=== PATIENT | male | born 1955 | race Caucasian/White ===

== ENCOUNTER 2018-01-01 19:54 | Emergency (ER) | payer OTHER, SELFPAY ==
[2018-01-01 20:15] VITALS: BP 183/109; PULSE 88; RESP 14; TEMP 36.3; O2SAT 98
--- NOTE | 2018-01-01 20:22 | ED.ALLEREA ---
HPI - Allergic Reaction <KATIANA Knowles - Last Filed: 01/01/18 23:14> General Chief complaint: Allergic Reaction Stated complaint: YELLOW JACKET STUNG TONGUE Time Seen by Provider: 01/01/18 20:22 Source: patient and family Mode of arrival: ambulatory Limitations: no limitations History of Present Illness HPI narrative: 62-year-old male here for complaint of swelling to his tongue after be done by yellow jacket to his tongue earlier this evening. He reports swelling to the tongue and some slight discomfort however it is limited just to the tongue not to the throat. He denies any shortness of breath. He denies having any prior history of having a anaphylactic allergic response to venom. He is ambulatory in the emergency room. No other concerns or complaints at this time. MD complaint: other (Tongue swelling) Related Data Home Medications Medication Instructions Recorded Confirmed methylcellulose (laxative) 500 mg PO DAILY #0 08/11/17 [Citrucel] Previous Rx's Medication Instructions Recorded cetirizine 10 mg PO DAILY #5 cap 01/01/18 prednisone 40 mg PO DAILY #8 tab 01/01/18 Allergies Allergy/AdvReac Type Severity Reaction Status Date / Time walnut [WALNUT] Allergy Severe Anaphylaxis Verified 01/01/18 20:17 tadalafil [From CIALIS] Allergy Intermediate Anxiety Verified 01/01/18 20:17 Review of Systems <KATIANA Knowles - Last Filed: 01/01/18 23:14> Constitutional Denies chills, Denies fever(s), Denies lethargy and Denies weakness Eyes Denies change in vision, Denies eye discharge, Denies irritation and Denies loss of vision ENT Comments: Swelling of the tongue after wasp sting Cardiovascular Denies chest pain, Denies irregular heart rhythm, Denies lightheadedness, Denies palpitations, Denies dyspnea, Denies dyspnea on exertion and Denies orthopnea Respiratory Denies cough, Denies dyspnea, Denies dyspnea on exertion and Denies wheezing Gastrointestinal Gastrointestinal: Denies abdominal pain, Denies change in bowel habits, Denies diarrhea, Denies nausea and Denies vomiting Genitourinary Denies hematuria, Denies flank pain, Denies urinary incontinence and Denies urinary urgency Musculoskeletal Denies back pain, Denies muscle weakness, Denies numbness and Denies tingling Integumentary/Breasts Denies pruritus, Denies erythema, Denies rash and Denies wounds Neurologic Denies confusion, Denies loss of vision, Denies numbness, Denies tingling and Denies weakness Psychiatric Denies anxiety, Denies confusion, Denies depression, Denies homicidal ideation and Denies suicidal ideation Endocrine Denies palpitations Allergic/Immunologic Denies wheezing Exam <KATIANA Knowles - Last Filed: 01/01/18 23:14> Initial Vital Signs Initial Vital Signs: Vital Signs Temperature 97.4 F L 01/01/18 20:15 Pulse Rate 88 01/01/18 20:15 Respiratory Rate 14 01/01/18 20:15 Blood Pressure 183/109 H 01/01/18 20:15 Pulse Oximetry 98 01/01/18 20:15 Const General: cooperative and well developed Nutritional Appearance: well nourished Orientation: alert, awake, oriented x3 and not confused HENMT Head: normocephalic and atraumatic Nose: external nose normal and No nasal discharge Face and sinus: sinus tenderness Mouth: oral mucosae normal, oropharynx normal, moist mucous membranes and other (Tongue is swollen.) Teeth and gingiva: dentition normal Throat: tonsils normal and uvula midline Eyes Conjunctivae: conjunctivae normal Sclera: sclerae normal Pupils: PERRL EOM: EOM intact bilaterally Neck Neck: normal visual inspection, trachea midline, No lymphadenopathy, No midline deformity and No JVD Lymphatic: No lymphedema Chest Chest: normal inspection of the chest Resp Effort & Inspection: normal respiratory effort, able to speak in complete sentences, no respiratory distress and no use of accessory muscles Auscultation: clear to auscultation bilaterally, no rales, no rhonchi and no wheezes Cardio Rate: regular rate Rhythm: regular rhythm Heart Sounds: no click, no gallops, no murmurs and no rubs Skin General: no rashes or lesions noted, No jaundice and No petechiae Neuro General: alert, oriented x3, gait normal and no focal motor deficits Speech: speech normal <Goldy Courtney MD - Last Filed: 01/02/18 05:24> Initial Vital Signs Initial Vital Signs: Vital Signs Temperature 97.4 F L 01/01/18 20:15 Pulse Rate 88 01/01/18 20:15 Respiratory Rate 14 01/01/18 20:15 Blood Pressure 183/109 H 01/01/18 20:15 Pulse Oximetry 98 01/01/18 20:15 Course <KATIANA Knowles - Last Filed: 01/01/18 23:14> Orders Ordered: Discontinued Medications Diphenhydramine HCl (Benadryl) 50 mg IV NOW ONE Stop: 01/01/18 20:23 Last Admin: 01/01/18 20:29 Dose: 50 mg Famotidine (Pepcid) 20 mg in 50 mls @ 200 mls/hr IV NOW ONE Stop: 01/01/18 20:36 Last Infusion: 01/01/18 20:45 Dose: 0 mls/hr Admin: 01/01/18 20:29 Dose: 200 mls/hr Methylprednisolone (Solu-Medrol 125 Mg Vial) 125 mg IV NOW ONE Stop: 01/01/18 20:23 Last Admin: 01/01/18 20:29 Dose: 125 mg Vital Signs - 8 hr 01/01/18 22:16 Temperature 98.1 F Pulse Rate 78 Respiratory Rate 16 Blood Pressure 156/99 H Pulse Oximetry 100 <Goldy Courtney MD - Last Filed: 01/02/18 05:24> Orders Ordered: Discontinued Medications Diphenhydramine HCl (Benadryl) 50 mg IV NOW ONE Stop: 01/01/18 20:23 Last Admin: 01/01/18 20:29 Dose: 50 mg Famotidine (Pepcid) 20 mg in 50 mls @ 200 mls/hr IV NOW ONE Stop: 01/01/18 20:36 Last Infusion: 01/01/18 20:45 Dose: 0 mls/hr Admin: 01/01/18 20:29 Dose: 200 mls/hr Methylprednisolone (Solu-Medrol 125 Mg Vial) 125 mg IV NOW ONE Stop: 01/01/18 20:23 Last Admin: 01/01/18 20:29 Dose: 125 mg Vital Signs - 8 hr 01/01/18 22:16 Temperature 98.1 F Pulse Rate 78 Respiratory Rate 16 Blood Pressure 156/99 H Pulse Oximetry 100 MDM - Allergic Reaction <KATIANA Knowles - Last Filed: 01/01/18 23:14> MDM Narrative Medical decision making narrative: He was given Benadryl, Solu-Medrol and Pepcid IV here in the emergency room. He was observed for a couple of hours and did not have any changes in his symptoms. He still had some swelling to his tongue however did not progress to any other symptoms. He is not in kidney acute distress. He states that he does not feel any shortness of breath. He is prescribed a short course of prednisone for anti-inflammatory effects along with Zyrtec for antihistamine. May use Benadryl at night follow up with primary care provider the next few days for re-evaluation. For any worsening symptoms return emergency room. Discharge Plan Departure Patient Disposition: Home, Self-Care Clinical Impression: Tongue swelling, Accidental insect sting Discharge Date/Time: 01/01/18 22:16 Interventions: ED Discharge Assessment Last Done: 01/01/18 22:16 Instructions: DI for Insect Bites and Stings Activity Restrictions/Additional Instructions: Urine given medication in the emergency room to help control swelling of the tongue and prevent any further swelling to your neck and airway. After observation for couple hours it seems that you're airway and time were stable. You are prescribed Short course of prednisone steroid to help with inflammation. Also Zyrtec and antihistamine use as directed. Follow up with primary care for the next few days for re-evaluation. For any worsening symptoms return emergency room. Prescriptions: New prednisone 20 mg tablet 40 mg PO DAILY Qty: 8 RF: 0 cetirizine 10 mg capsule 10 mg PO DAILY Qty: 5 RF: 0 No Action methylcellulose (laxative) [Citrucel] 500 MG tablet 500 mg PO DAILY Qty: 0 RF: 0 Referrals: [facility] [Provider Group] <Goldy Courtney MD - Last Filed: 01/02/18 05:24> Cosign ED Attending Denaature Attestation: I was available in the ER for verbal consultation and to see the patient directly if needed. I agree with the evaluation and discharge plan for this patient.
[2018-01-01] MEDS: methylPREDNISolone 125 MG/2 ML VIAL IV (20:29)
[2018-01-01] MEDS: diphenhydrAMINE 50 MG/ML VIAL IV (20:29)
[2018-01-01] MEDS: FAMOTIDINE 20 MG/50 ML PIGGYBACK 200 MG IV (20:29)
[2018-01-01 22:16] VITALS: BP 156/99; PULSE 78; RESP 16; TEMP 36.7; O2SAT 100
== END 2018-01-01 22:16 | disposition home or self-care (01) ==
PROVIDERS: Emergency Provider Nurse Practitioner Family
DX: S09.93XA Unspecified injury of face, initial encounter (principal); T63.461A Toxic effect of venom of wasps, accidental (unintentional), initial encounter; R22.0 Localized swelling, mass and lump, head
CPT/HCPCS: 36591; 96374; 96375; 99283; 99284; J1200; J2930

== ENCOUNTER 2018-02-17 11:29 | Emergency (ER) | payer OTHER, SELFPAY ==
[2018-02-17 11:35] VITALS: BP 186/106; PULSE 84; RESP 20; TEMP 36.8; O2SAT 100
--- NOTE | 2018-02-17 13:56 | ED.NEUROSD ---
HPI - Neuro Symptoms/Deficit <KATIANA Knowles - Last Filed: 02/17/18 21:41> General Chief Complaint: Neuro Symptoms/Deficit Stated Complaint: feels really tired Time Seen by Provider: 02/17/18 13:54 Source: patient Mode of arrival: ambulatory Limitations: no limitations History of Present Illness HPI Narrative: 62-year-old male with history of hypertension and a nonsmoker states he is here for feeling tired over the last 3 days. He denies any fevers or chills. Denies any chest pain. No shortness of breath. Positive p.o. intake. No nausea vomiting. Last bowel movement was earlier today and was unremarkable. No urinary symptoms. He states that he is concerned about bradycardia or AFib because last time he had symptoms like this that he had those complications at that time. He denies feeling any palpitations at this time Related Data Home Medications Medication Instructions Recorded Confirmed methylcellulose (laxative) 500 mg PO DAILY #0 08/11/17 02/17/18 [Citrucel] Cbd Cream 2:1 1 applic TOPICAL PRN PRN 02/17/18 02/17/18 aspirin 81 mg PO QPM 02/17/18 02/17/18 benazepril 40 mg PO QPM 02/17/18 02/17/18 hyoscyamine sulfate 1 tab PO BID 02/17/18 02/17/18 pantoprazole 40 mg PO BID 02/17/18 02/17/18 sildenafil (antihypertensive) 1 dose PO PRN PRN 02/17/18 02/17/18 venlafaxine [Effexor XR] 75 mg PO BEDTIME 02/17/18 02/17/18 zolpidem 10 mg PO BEDTIME PRN 02/17/18 02/17/18 Allergies Allergy/AdvReac Type Severity Reaction Status Date / Time walnut [WALNUT] Allergy Severe Anaphylaxis Verified 01/01/18 20:17 tadalafil [From CIALIS] Allergy Intermediate Anxiety Verified 01/01/18 20:17 Review of Systems <KATIANA Knowles - Last Filed: 02/17/18 21:41> Constitutional Denies chills, Reports fatigue, Denies fever(s), Denies lethargy and Denies weakness ENT Ears, Nose, Mouth, and Throat: Denies change in voice, Denies neck pain and Denies sore throat Cardiovascular Denies chest pain, Denies irregular heart rhythm, Denies lightheadedness, Denies palpitations, Denies dyspnea, Denies dyspnea on exertion and Denies orthopnea Respiratory Denies cough, Denies dyspnea, Denies dyspnea on exertion and Denies wheezing Gastrointestinal Gastrointestinal: Denies abdominal pain, Denies change in bowel habits, Denies diarrhea, Denies nausea and Denies vomiting Genitourinary Denies hematuria, Denies flank pain, Denies urinary incontinence and Denies urinary urgency Musculoskeletal Denies neck pain Integumentary/Breasts Denies pruritus, Denies erythema, Denies rash and Denies wounds Neurologic Denies weakness Endocrine Reports fatigue and Denies palpitations Allergic/Immunologic Denies wheezing Exam <KATIANA Knowles - Last Filed: 02/17/18 21:41> Initial Vital Signs Initial Vital Signs: Vital Signs Temperature 98.2 F 02/17/18 11:35 Pulse Rate 84 02/17/18 11:35 Respiratory Rate 20 02/17/18 11:35 Blood Pressure 186/106 H 02/17/18 11:35 Pulse Oximetry 100 02/17/18 11:35 Const General: cooperative and well developed Nutritional Appearance: well nourished Orientation: alert, awake, oriented x3 and not confused HENAR Mouth: oral mucosae normal and moist mucous membranes Eyes Conjunctivae: conjunctivae normal Sclera: sclerae normal Pupils: PERRL EOM: EOM intact bilaterally Resp Effort & Inspection: normal respiratory effort, able to speak in complete sentences, no respiratory distress and no use of accessory muscles Auscultation: clear to auscultation bilaterally, no rales, no rhonchi and no wheezes Cardio Rate: regular rate Rhythm: regular rhythm Heart Sounds: no click, no gallops, no murmurs and no rubs Pulses: normal peripheral pulses GI Inspection: non-distended Palpation: soft, no hepatosplenomegaly, No guarding, No pulsatile mass and No tender Auscultation: normal bowel sounds Skin General: no rashes or lesions noted, No jaundice and No petechiae Neuro General: alert, oriented x3, gait normal and no focal motor deficits Speech: speech normal <Karli Marrero DO - Last Filed: 02/20/18 08:07> Initial Vital Signs Initial Vital Signs: Vital Signs Temperature 98.2 F 02/17/18 11:35 Pulse Rate 84 02/17/18 11:35 Respiratory Rate 20 02/17/18 11:35 Blood Pressure 186/106 H 02/17/18 11:35 Pulse Oximetry 100 02/17/18 11:35 Course <KATIANA Knowles - Last Filed: 02/17/18 21:41> Orders Ordered: Discontinued Medications Diphtheria/Tetanus/Acell Pertussis (Adacel) 0.5 ml IM .ONCE ONE Stop: 02/20/18 07:56 Sodium Chloride (Normal Saline 0.9%) 1,000 mls @ 150 mls/hr IV CONT TARUN Last Admin: 02/17/18 17:40 Dose: Not Given Vital Signs - 8 hr 02/17/18 11:35 02/17/18 16:52 Temperature 98.2 F Pulse Rate 84 91 H Respiratory Rate 20 20 Blood Pressure 186/106 H Blood Pressure [Left Arm] 143/105 H Pulse Oximetry 100 93 <Karli Marrero DO - Last Filed: 02/20/18 08:07> Orders Ordered: Discontinued Medications Diphtheria/Tetanus/Acell Pertussis (Adacel) 0.5 ml IM .ONCE ONE Stop: 02/20/18 07:56 Sodium Chloride (Normal Saline 0.9%) 1,000 mls @ 150 mls/hr IV CONT TARUN Last Admin: 02/17/18 17:40 Dose: Not Given Vital Signs - 8 hr 02/17/18 11:35 02/17/18 16:52 Temperature 98.2 F Pulse Rate 84 91 H Respiratory Rate 20 20 Blood Pressure 186/106 H Blood Pressure [Left Arm] 143/105 H Pulse Oximetry 100 93 MDM - Neuro Symptoms/Deficit <KATIANA Knowles - Last Filed: 02/17/18 21:41> Lab Data Result diagrams: 02/17/18 15:45 02/17/18 15:45 Lab Results 02/17/18 02/17/18 Range/Units 15:45 15:45 WBC 7.1 (4.5-11.0) X10^3/uL RBC 4.33 L (4.5-5.9) X10^6/uL Hgb 14.3 (13.5-17.5) g/dL Hct 41.2 (41-53) % MCV 95.1 (80-100) fL MCH 33.1 (26-34) PG MCHC 34.8 (30-36) % RDW 13.1 (11.6-14.8) % Plt Count 271 (150-400) X10^3/uL Neut % (Auto) 61.9 (50-75) % Lymph % (Auto) 22.0 L (25-40) % Mingo % (Auto) 12.2 (3-14) % Eos % (Auto) 2.8 (2-4) % Baso % (Auto) 1.1 (0-2) % Neut # (Auto) 4400 (5450-5064) /uL Sodium 143 (137-145) mmol/L Potassium 3.7 (3.4-5.1) mmol/L Chloride 104 (98-107) mmol/L Carbon Dioxide 26 (22-32) mmol/L BUN 12 (9-20) mg/dL Creatinine 0.80 (0.66-1.25) mg/dL Estimated GFR > 60.0 (>60) mL/min BUN/Creatinine Ratio 15.0 (6-22) Glucose 100 (80-110) mg/dL Calcium 9.5 (8.4-10.2) mg/dL Total Bilirubin 0.7 (0.2-1.3) mg/dL AST 26 (17-59) IU/L ALT 25 (21-72) IU/L Alkaline Phosphatase 59 (38-126) U/L Total Creatine Kinase 224 H (55-170) U/L CK-MB (CK-2) 1.25 (<2.37) ng/mL CK-MB (CK-2) Rel Index 0.6 L (1.5-5.0) % Troponin I < 0.012 (0.01-0.034) ng/mL Total Protein 7.3 (6.3-8.2) g/dL Albumin 4.5 (3.5-5.0) g/dL Globulin 2.8 (1.7-4.1) g/dL Albumin/Globulin Ratio 1.6 (1.0-2.8) Imaging Data Chest x-ray: Radiologist's impression: [address] [address] XRay Report Signed Patient: Breezy Patel CMR#: [id number] : 4Acct:[id number] Age/Sex: 62 / MDate of Service: 02/17/18 Loc: ED Accession Number: [id number] Procedure: XR chest 1V Ordering Provider: Dallas Torres PROCEDURE: XR CHEST 1V INDICATIONS: Feels increased tiredness TECHNIQUE: One view of the chest was acquired. COMPARISON: None. FINDINGS: Surgical changes and devices: A cardiac monitoring device is seen. Lungs and pleura: On this semiupright portable chest examination, no large pneumothorax or large pleural effusions are seen. No focal infiltrates are seen. Mediastinum: Mediastinal contours appear normal. Heart size is normal. Bones and chest wall: No suspicious bony lesions. Overlying soft tissues appear unremarkable. IMPRESSION: Limited portable chest examination, without a significant cardiopulmonary abnormality identified. Dictated by: Joshua Severino M.D. on 02/17/2018 at 15:47 Approved by: Joshua Severino M.D. on 02/17/2018 at 15:48 ECG Data Interpretation: EKG shows normal sinus rhythm with no ST elevation or depression. No ectopy. Ventricular rate of 81. Pr interval of 141. QRS duration 95. QT is 363. MDM Narrative Medical decision making narrative: CBC and Chem panel were obtained were unremarkable. Cardiac enzymes were obtained and were negative. Chest x-ray was negative for any acute findings. EKG shows sinus rhythm with no ST elevation or depression. No ectopy. No emergent causes of his symptoms of feeling tired. He is in encouraged to drink plenty of fluids. Get plenty of rest. Follow up with primary care provider next week. For any worsening symptoms return emergency room. <Karli Marrero, - Last Filed: 02/20/18 08:07> Lab Data Lab Results 02/17/18 02/17/18 Range/Units 15:45 15:45 WBC 7.1 (4.5-11.0) X10^3/uL RBC 4.33 L (4.5-5.9) X10^6/uL Hgb 14.3 (13.5-17.5) g/dL Hct 41.2 (41-53) % MCV 95.1 (80-100) fL MCH 33.1 (26-34) PG MCHC 34.8 (30-36) % RDW 13.1 (11.6-14.8) % Plt Count 271 (150-400) X10^3/uL Neut % (Auto) 61.9 (50-75) % Lymph % (Auto) 22.0 L (25-40) % Mingo % (Auto) 12.2 (3-14) % Eos % (Auto) 2.8 (2-4) % Baso % (Auto) 1.1 (0-2) % Neut # (Auto) 4400 (6722-8491) /uL Sodium 143 (137-145) mmol/L Potassium 3.7 (3.4-5.1) mmol/L Chloride 104 (98-107) mmol/L Carbon Dioxide 26 (22-32) mmol/L BUN 12 (9-20) mg/dL Creatinine 0.80 (0.66-1.25) mg/dL Estimated GFR > 60.0 (>60) mL/min BUN/Creatinine Ratio 15.0 (6-22) Glucose 100 (80-110) mg/dL Calcium 9.5 (8.4-10.2) mg/dL Total Bilirubin 0.7 (0.2-1.3) mg/dL AST 26 (17-59) IU/L ALT 25 (21-72) IU/L Alkaline Phosphatase 59 (38-126) U/L Total Creatine Kinase 224 H (55-170) U/L CK-MB (CK-2) 1.25 (<2.37) ng/mL CK-MB (CK-2) Rel Index 0.6 L (1.5-5.0) % Troponin I < 0.012 (0.01-0.034) ng/mL Total Protein 7.3 (6.3-8.2) g/dL Albumin 4.5 (3.5-5.0) g/dL Globulin 2.8 (1.7-4.1) g/dL Albumin/Globulin Ratio 1.6 (1.0-2.8) Discharge Plan Departure Patient Disposition: Home Clinical Impression: Fatigue Discharge Date/Time: 02/17/18 17:42 Interventions: ED Discharge Assessment Last Done: 02/17/18 17:42 Instructions: DI for Muscle Weakness Activity Restrictions/Additional Instructions: Laboratory results imaging and EKG today were unremarkable. No identifiable cause is seen on evaluation 4 year symptoms. Anterior drinking plenty of fluids in eating well-balanced meal. Plenty of rest. Follow up with primary care provider next week. For any worsening symptoms return to the emergency room. Prescriptions: No Action methylcellulose (laxative) [Citrucel] 500 MG tablet 500 mg PO DAILY Qty: 0 RF: 0 sildenafil (antihypertensive) 20 mg tablet 1 dose PO PRN PRN (Reason: Sexual Activity) RF: 0 venlafaxine [Effexor XR] 75 mg Capsule,Extended Release 24hr 75 mg PO BEDTIME RF: 0 aspirin 81 mg Tablet,Delayed Release (Dr/Ec) 81 mg PO QPM RF: 0 hyoscyamine sulfate 0.375 mg tablet extended release 12 hr 1 tab PO BID RF: 0 pantoprazole 40 mg Tablet,Delayed Release (Dr/Ec) 40 mg PO BID RF: 0 zolpidem 10 mg Tablet 10 mg PO BEDTIME PRN (Reason: Sleep) RF: 0 benazepril 40 mg Tablet 40 mg PO QPM RF: 0 Cbd Cream 2:1 1 applic Topical PRN PRN (Reason: DIRECTED) RF: 0 Referrals: [facility] [Provider Group] <Karli Marrero DO - Last Filed: 02/20/18 08:07> [facility]: I was immediately available in the department for consultation. This documentation has been reviewed and I agree with assessment and plan. Supervised by Karli Marrero DO
--- NOTE | 2018-02-17 15:10 | DI.RAD.S_ITS ---
PROCEDURE: XR CHEST 1V INDICATIONS: Feels increased tiredness TECHNIQUE: One view of the chest was acquired. COMPARISON: None. FINDINGS: Surgical changes and devices: A cardiac monitoring device is seen. Lungs and pleura: On this semiupright portable chest examination, no large pneumothorax or large pleural effusions are seen. No focal infiltrates are seen. Mediastinum: Mediastinal contours appear normal. Heart size is normal. Bones and chest wall: No suspicious bony lesions. Overlying soft tissues appear unremarkable. IMPRESSION: Limited portable chest examination, without a significant cardiopulmonary abnormality identified. Dictated by: Joshua Severino M.D. on 02/17/2018 at 15:47 Approved by: Joshua Severino M.D. on 02/17/2018 at 15:48
[2018-02-17 16:08] LABS: Add Manual Diff / Slide Review NO; Basophils Percent Auto 1.1 % (0-2); Eosinophils Percent Auto 2.8 % (2-4); Hematocrit 41.2 % (41-53); Hemoglobin 14.3 g/dL (13.5-17.5); Mean Corpuscular HGB Conc 34.8 % (30-36); Mean Corpuscular Hemoglobin 33.1 PG (26-34); Mean Corpuscular Volume 95.1 fL (80-100); Monocytes Percent Auto 12.2 % (3-14); Neutrophils Absolute Auto 4400 /uL (3000-5900); Neutrophils Percent Auto 61.9 % (50-75); Platelet Count 271 X10^3/uL (150-400); Red Blood Cell Count 4.33 X10^6/uL (4.5-5.9); Red Cell Distribution Width 13.1 % (11.6-14.8); White Blood Cell Count 7.1 X10^3/uL (4.5-11.0)
[2018-02-17 16:17] LABS: Alanine Aminotransferase 25 IU/L (21-72); Albumin 4.5 g/dL (3.5-5.0); Albumin Globulin Ratio 1.6 (1.0-2.8); Alkaline Phosphatase 59 U/L (38-126); Aspartate Aminotransferase 26 IU/L (17-59); Bilirubin Total 0.7 mg/dL (0.2-1.3); Blood Urea Nitrogen 12 mg/dL (9-20); Calcium 9.5 mg/dL (8.4-10.2); Carbon Dioxide 26 mmol/L (22-32); Chloride 104 mmol/L (98-107); Creatine Kinase 224 U/L (55-170); Estimated Glomerular Filt Rate > 60.0 mL/min (>60); Globulin 2.8 g/dL (1.7-4.1); Glucose 100 mg/dL (80-110); HEMOLYSIS < 15 (0-50); Potassium 3.7 mmol/L (3.4-5.1); Sodium 143 mmol/L (137-145); Total Protein 7.3 g/dL (6.3-8.2)
--- NOTE | 2018-02-17 16:27 | ED_ITS ---
HPI - Neuro Symptoms/Deficit <KATIANA Knowles - Last Filed: 02/17/18 21:41> General Chief Complaint: Neuro Symptoms/Deficit Stated Complaint: feels really tired Time Seen by Provider: 02/17/18 13:54 Source: patient Mode of arrival: ambulatory Limitations: no limitations History of Present Illness HPI Narrative: 62-year-old male with history of hypertension and a nonsmoker states he is here for feeling tired over the last 3 days. He denies any fevers or chills. Denies any chest pain. No shortness of breath. Positive p.o. intake. No nausea vomiting. Last bowel movement was earlier today and was unremarkable. No urinary symptoms. He states that he is concerned about bradycardia or AFib because last time he had symptoms like this that he had those complications at that time. He denies feeling any palpitations at this time Related Data Home Medications Medication Instructions Recorded Confirmed methylcellulose (laxative) 500 mg PO DAILY #0 08/11/17 02/17/18 [Citrucel] Cbd Cream 2:1 1 applic TOPICAL PRN PRN 02/17/18 02/17/18 aspirin 81 mg PO QPM 02/17/18 02/17/18 benazepril 40 mg PO QPM 02/17/18 02/17/18 hyoscyamine sulfate 1 tab PO BID 02/17/18 02/17/18 pantoprazole 40 mg PO BID 02/17/18 02/17/18 sildenafil (antihypertensive) 1 dose PO PRN PRN 02/17/18 02/17/18 venlafaxine [Effexor XR] 75 mg PO BEDTIME 02/17/18 02/17/18 zolpidem 10 mg PO BEDTIME PRN 02/17/18 02/17/18 Allergies Allergy/AdvReac Type Severity Reaction Status Date / Time walnut [WALNUT] Allergy Severe Anaphylaxis Verified 01/01/18 20:17 tadalafil [From CIALIS] Allergy Intermediate Anxiety Verified 01/01/18 20:17 Review of Systems <KATIANA Knowles - Last Filed: 02/17/18 21:41> Constitutional Denies chills, Reports fatigue, Denies fever(s), Denies lethargy and Denies weakness ENT Ears, Nose, Mouth, and Throat: Denies change in voice, Denies neck pain and Denies sore throat Cardiovascular Denies chest pain, Denies irregular heart rhythm, Denies lightheadedness, Denies palpitations, Denies dyspnea, Denies dyspnea on exertion and Denies orthopnea Respiratory Denies cough, Denies dyspnea, Denies dyspnea on exertion and Denies wheezing Gastrointestinal Gastrointestinal: Denies abdominal pain, Denies change in bowel habits, Denies diarrhea, Denies nausea and Denies vomiting Genitourinary Denies hematuria, Denies flank pain, Denies urinary incontinence and Denies urinary urgency Musculoskeletal Denies neck pain Integumentary/Breasts Denies pruritus, Denies erythema, Denies rash and Denies wounds Neurologic Denies weakness Endocrine Reports fatigue and Denies palpitations Allergic/Immunologic Denies wheezing Exam <KATIANA Knowles - Last Filed: 02/17/18 21:41> Initial Vital Signs Initial Vital Signs: Vital Signs Temperature 98.2 F 02/17/18 11:35 Pulse Rate 84 02/17/18 11:35 Respiratory Rate 20 02/17/18 11:35 Blood Pressure 186/106 H 02/17/18 11:35 Pulse Oximetry 100 02/17/18 11:35 Const General: cooperative and well developed Nutritional Appearance: well nourished Orientation: alert, awake, oriented x3 and not confused HENMA Mouth: oral mucosae normal and moist mucous membranes Eyes Conjunctivae: conjunctivae normal Sclera: sclerae normal Pupils: PERRL EOM: EOM intact bilaterally Resp Effort & Inspection: normal respiratory effort, able to speak in complete sentences, no respiratory distress and no use of accessory muscles Auscultation: clear to auscultation bilaterally, no rales, no rhonchi and no wheezes Cardio Rate: regular rate Rhythm: regular rhythm Heart Sounds: no click, no gallops, no murmurs and no rubs Pulses: normal peripheral pulses GI Inspection: non-distended Palpation: soft, no hepatosplenomegaly, No guarding, No pulsatile mass and No tender Auscultation: normal bowel sounds Skin General: no rashes or lesions noted, No jaundice and No petechiae Neuro General: alert, oriented x3, gait normal and no focal motor deficits Speech: speech normal <Karli Marrero DO - Last Filed: 02/20/18 08:07> Initial Vital Signs Initial Vital Signs: Vital Signs Temperature 98.2 F 02/17/18 11:35 Pulse Rate 84 02/17/18 11:35 Respiratory Rate 20 02/17/18 11:35 Blood Pressure 186/106 H 02/17/18 11:35 Pulse Oximetry 100 02/17/18 11:35 Course <KATIANA Knowles - Last Filed: 02/17/18 21:41> Orders Ordered: Discontinued Medications Diphtheria/Tetanus/Acell Pertussis (Adacel) 0.5 ml IM .ONCE ONE Stop: 02/20/18 07:56 Sodium Chloride (Normal Saline 0.9%) 1,000 mls @ 150 mls/hr IV CONT TARUN Last Admin: 02/17/18 17:40 Dose: Not Given Vital Signs - 8 hr 02/17/18 11:35 02/17/18 16:52 Temperature 98.2 F Pulse Rate 84 91 H Respiratory Rate 20 20 Blood Pressure 186/106 H Blood Pressure [Left Arm] 143/105 H Pulse Oximetry 100 93 <Karli Marrero DO - Last Filed: 02/20/18 08:07> Orders Ordered: Discontinued Medications Diphtheria/Tetanus/Acell Pertussis (Adacel) 0.5 ml IM .ONCE ONE Stop: 02/20/18 07:56 Sodium Chloride (Normal Saline 0.9%) 1,000 mls @ 150 mls/hr IV CONT TARUN Last Admin: 02/17/18 17:40 Dose: Not Given Vital Signs - 8 hr 02/17/18 11:35 02/17/18 16:52 Temperature 98.2 F Pulse Rate 84 91 H Respiratory Rate 20 20 Blood Pressure 186/106 H Blood Pressure [Left Arm] 143/105 H Pulse Oximetry 100 93 MDM - Neuro Symptoms/Deficit <KATIANA Knowles - Last Filed: 02/17/18 21:41> Lab Data Result diagrams: 02/17/18 15:45 02/17/18 15:45 Lab Results 02/17/18 02/17/18 Range/Units 15:45 15:45 WBC 7.1 (4.5-11.0) X10^3/uL RBC 4.33 L (4.5-5.9) X10^6/uL Hgb 14.3 (13.5-17.5) g/dL Hct 41.2 (41-53) % MCV 95.1 (80-100) fL MCH 33.1 (26-34) PG MCHC 34.8 (30-36) % RDW 13.1 (11.6-14.8) % Plt Count 271 (150-400) X10^3/uL Neut % (Auto) 61.9 (50-75) % Lymph % (Auto) 22.0 L (25-40) % Owsley % (Auto) 12.2 (3-14) % Eos % (Auto) 2.8 (2-4) % Baso % (Auto) 1.1 (0-2) % Neut # (Auto) 4400 (8023-3589) /uL Sodium 143 (137-145) mmol/L Potassium 3.7 (3.4-5.1) mmol/L Chloride 104 (98-107) mmol/L Carbon Dioxide 26 (22-32) mmol/L BUN 12 (9-20) mg/dL Creatinine 0.80 (0.66-1.25) mg/dL Estimated GFR > 60.0 (>60) mL/min BUN/Creatinine Ratio 15.0 (6-22) Glucose 100 (80-110) mg/dL Calcium 9.5 (8.4-10.2) mg/dL Total Bilirubin 0.7 (0.2-1.3) mg/dL AST 26 (17-59) IU/L ALT 25 (21-72) IU/L Alkaline Phosphatase 59 (38-126) U/L Total Creatine Kinase 224 H (55-170) U/L CK-MB (CK-2) 1.25 (<2.37) ng/mL CK-MB (CK-2) Rel Index 0.6 L (1.5-5.0) % Troponin I < 0.012 (0.01-0.034) ng/mL Total Protein 7.3 (6.3-8.2) g/dL Albumin 4.5 (3.5-5.0) g/dL Globulin 2.8 (1.7-4.1) g/dL Albumin/Globulin Ratio 1.6 (1.0-2.8) Imaging Data Chest x-ray: Radiologist's impression: [address] [address] XRay Report Signed Patient: Breezy Patel CMR#: [id number] : 4Acct:[id number] Age/Sex: 62 / MDate of Service: 02/17/18 Loc: ED Accession Number: [id number] Procedure: XR chest 1V Ordering Provider: Dallas Torres PROCEDURE: XR CHEST 1V INDICATIONS: Feels increased tiredness TECHNIQUE: One view of the chest was acquired. COMPARISON: None. FINDINGS: Surgical changes and devices: A cardiac monitoring device is seen. Lungs and pleura: On this semiupright portable chest examination, no large pneumothorax or large pleural effusions are seen. No focal infiltrates are seen. Mediastinum: Mediastinal contours appear normal. Heart size is normal. Bones and chest wall: No suspicious bony lesions. Overlying soft tissues appear unremarkable. IMPRESSION: Limited portable chest examination, without a significant cardiopulmonary abnormality identified. Dictated by: Joshua Severino M.D. on 02/17/2018 at 15:47 Approved by: Joshua Severino M.D. on 02/17/2018 at 15:48 ECG Data Interpretation: EKG shows normal sinus rhythm with no ST elevation or depression. No ectopy. Ventricular rate of 81. Pr interval of 141. QRS duration 95. QT is 363. MDM Narrative Medical decision making narrative: CBC and Chem panel were obtained were unremarkable. Cardiac enzymes were obtained and were negative. Chest x-ray was negative for any acute findings. EKG shows sinus rhythm with no ST elevation or depression. No ectopy. No emergent causes of his symptoms of feeling tired. He is in encouraged to drink plenty of fluids. Get plenty of rest. Follow up with primary care provider next week. For any worsening symptoms return emergency room. <Karli Marrero, - Last Filed: 02/20/18 08:07> Lab Data Lab Results 02/17/18 02/17/18 Range/Units 15:45 15:45 WBC 7.1 (4.5-11.0) X10^3/uL RBC 4.33 L (4.5-5.9) X10^6/uL Hgb 14.3 (13.5-17.5) g/dL Hct 41.2 (41-53) % MCV 95.1 (80-100) fL MCH 33.1 (26-34) PG MCHC 34.8 (30-36) % RDW 13.1 (11.6-14.8) % Plt Count 271 (150-400) X10^3/uL Neut % (Auto) 61.9 (50-75) % Lymph % (Auto) 22.0 L (25-40) % Owsley % (Auto) 12.2 (3-14) % Eos % (Auto) 2.8 (2-4) % Baso % (Auto) 1.1 (0-2) % Neut # (Auto) 4400 (6366-9736) /uL Sodium 143 (137-145) mmol/L Potassium 3.7 (3.4-5.1) mmol/L Chloride 104 (98-107) mmol/L Carbon Dioxide 26 (22-32) mmol/L BUN 12 (9-20) mg/dL Creatinine 0.80 (0.66-1.25) mg/dL Estimated GFR > 60.0 (>60) mL/min BUN/Creatinine Ratio 15.0 (6-22) Glucose 100 (80-110) mg/dL Calcium 9.5 (8.4-10.2) mg/dL Total Bilirubin 0.7 (0.2-1.3) mg/dL AST 26 (17-59) IU/L ALT 25 (21-72) IU/L Alkaline Phosphatase 59 (38-126) U/L Total Creatine Kinase 224 H (55-170) U/L CK-MB (CK-2) 1.25 (<2.37) ng/mL CK-MB (CK-2) Rel Index 0.6 L (1.5-5.0) % Troponin I < 0.012 (0.01-0.034) ng/mL Total Protein 7.3 (6.3-8.2) g/dL Albumin 4.5 (3.5-5.0) g/dL Globulin 2.8 (1.7-4.1) g/dL Albumin/Globulin Ratio 1.6 (1.0-2.8) Discharge Plan Departure Patient Disposition: Home Clinical Impression: Fatigue Discharge Date/Time: 02/17/18 17:42 Interventions: ED Discharge Assessment Last Done: 02/17/18 17:42 Instructions: DI for Muscle Weakness Activity Restrictions/Additional Instructions: Laboratory results imaging and EKG today were unremarkable. No identifiable cause is seen on evaluation 4 year symptoms. Anterior drinking plenty of fluids in eating well-balanced meal. Plenty of rest. Follow up with primary care provider next week. For any worsening symptoms return to the emergency room. Prescriptions: No Action methylcellulose (laxative) [Citrucel] 500 MG tablet 500 mg PO DAILY Qty: 0 RF: 0 sildenafil (antihypertensive) 20 mg tablet 1 dose PO PRN PRN (Reason: Sexual Activity) RF: 0 venlafaxine [Effexor XR] 75 mg Capsule,Extended Release 24hr 75 mg PO BEDTIME RF: 0 aspirin 81 mg Tablet,Delayed Release (Dr/Ec) 81 mg PO QPM RF: 0 hyoscyamine sulfate 0.375 mg tablet extended release 12 hr 1 tab PO BID RF: 0 pantoprazole 40 mg Tablet,Delayed Release (Dr/Ec) 40 mg PO BID RF: 0 zolpidem 10 mg Tablet 10 mg PO BEDTIME PRN (Reason: Sleep) RF: 0 benazepril 40 mg Tablet 40 mg PO QPM RF: 0 Cbd Cream 2:1 1 applic Topical PRN PRN (Reason: DIRECTED) RF: 0 Referrals: [facility] [Provider Group] <Karli Marrero DO - Last Filed: 02/20/18 08:07> [facility] I was immediately available in the department for consultation. This documentation has been reviewed and I agree with assessment and plan. Supervised by Karli Marrero DO
[2018-02-17 16:33] LABS: CKMB % Relative Index 0.6 % (1.5-5.0); Creatine Kinase MB 1.25 ng/mL (<2.37); Troponin I < 0.012 ng/mL (0.01-0.034)
[2018-02-17 16:52] VITALS: BP 143/105; PULSE 91; RESP 20; O2SAT 93
--- NOTE | 2018-02-17 17:41 | PC.NURSE ---
pt arrived to Er with c/o weakness. no stroke symptoms
[2018-02-17 17:42] VITALS: BP 152/98; PULSE 81; RESP 25; O2SAT 97
== END 2018-02-17 17:42 | disposition home or self-care (01) ==
PROVIDERS: Emergency Provider Nurse Practitioner Family
DX: R53.83 Other fatigue (principal)
CPT/HCPCS: 71045; 80053; 82550; 82553; 84484; 85025; 93005; 93041; 99283; 99285; 99291

== ENCOUNTER 2019-07-24 11:52 | Emergency (ER) | payer MEDICARE, OTHER, SELFPAY ==
[2019-07-24 11:59] VITALS: BP 139/93; PULSE 89; RESP 14; TEMP 36.6; O2SAT 99; BMI 23.7
--- NOTE | 2019-07-24 12:02 | DI.RAD.S_ITS ---
PROCEDURE: XR HIP W PEL IF DONE RT 2V INDICATIONS: recent injury TECHNIQUE: AP pelvis with lateral view(s) of the right hip(s). COMPARISON: CR, SPINE LUMB 2 OR 3VW, 06/17/2016, 11:29. FINDINGS: Bones: No fractures or dislocations. Pelvic ring appears intact. No suspicious bony lesions. Soft tissues: The visualized bowel gas pattern is normal. No suspicious soft tissue calcifications. IMPRESSION: No visualized acute fracture or dislocation. However, if clinical concern and/or pain persist, short interval imaging followup in 7-10 days is recommended, as occult injury cannot be definitively excluded. Dictated by: Marija Keller M.D. on 07/24/2019 at 12:53 Approved by: Marija Keller M.D. on 07/24/2019 at 12:54
[2019-07-24] MEDS: KETOROLAC 60 MG/2 ML VIAL IM (15:35)
[2019-07-24 15:58] VITALS: BP 135/83; PULSE 69; RESP 16; O2SAT 96
--- NOTE | 2019-07-24 16:22 | ED.LOWEXIN ---
HPI - Extremity Injury (Lower) <Karli Mancuso, [employer]ATOR-BC - Last Filed: 07/24/19 17:10> General Chief Complaint: Extremity Injury, Lower Stated Complaint: ski accident 07/20, right hip pain Time Seen by Provider: 07/24/19 14:27 Source: patient Mode of arrival: Ambulatory Limitations: no limitations History of Present Illness HPI Narrative: The patient is a 64-year-old male nonsmoker with history of hypertension who presents with a chief complaint of right hip pain. He states he fell skiing landed on his hip 4 days ago. He denies any neck back or head pain. He had not lost consciousness. He states that this is an isolated hip injury. He states he landed with his hip on the snow. Has been using Tylenol and gabapentin per his usual routine for chronic pain. He has not taken anything in addition for the hip. He is able to ambulate well. He is concerned about something wrong with his kidney given that he is having pain after 4 days. He states his pain is down by his right gluteus. He denies any bruising. Related Data Home Medications Medication Instructions Recorded Confirmed methylcellulose (laxative) 500 mg PO DAILY #0 08/11/17 02/17/18 [Citrucel] Cbd Cream 2:1 1 applic TOPICAL PRN PRN 02/17/18 02/17/18 aspirin 81 mg PO QPM 02/17/18 02/17/18 benazepril 40 mg PO QPM 02/17/18 07/24/19 pantoprazole 40 mg PO BID 02/17/18 07/24/19 venlafaxine [Effexor XR] 75 mg PO BEDTIME 02/17/18 02/17/18 zolpidem 5 - 10 mg PO BEDTIME PRN 02/17/18 07/24/19 gabapentin 300 mg PO BEDTIME 07/24/19 07/24/19 hyoscyamine sulfate 0.375 mg PO QID PRN 07/24/19 07/24/19 sildenafil (pulm.hypertension) 100 mg PO PRN PRN 07/24/19 07/24/19 Previous Rx's Medication Instructions Recorded ketorolac 10 mg PO TID PRN #15 tab 07/24/19 Allergies Allergy/AdvReac Type Severity Reaction Status Date / Time walnut [WALNUT] Allergy Severe Anaphylaxis Verified 01/01/18 20:17 tadalafil [From CIALIS] Allergy Intermediate Anxiety Verified 01/01/18 20:17 Review of Systems <CARMEN Sheffield - Last Filed: 07/24/19 17:10> Review of Systems Narrative: GENERAL: Denies chills, fatigue, malaise, fever, sweats. HEENT: Denies sinus pain, ear pain, sore throat, difficulty swallowing, dizziness. RESPIRATORY: Denies dyspnea, cough, wheezing, hemoptysis, sputum. CARDIOVASCULAR: Denies chest pain, palpitations, orthopnea, edema, GASTROINTESTINAL: Denies nausea, vomiting, abdominal pain, diarrhea, constipation, melena. : Denies dysuria, frequency, incontinence, hematuria, urinary retention. MUSCULOSKELETAL: See HPI SKIN: See HPI NEUROLOGIC: Denies weakness, headache, numbness, change in speech, confusion, seizures, incoordination. PSYCHIATRIC: No concerning psychosocial issues. 12 point review of systems is negative except for those stated above Patient History <CARMEN Sheffield - Last Filed: 07/24/19 17:10> Medical History Diverticulitis (Acute) Social History Smoking Status: Never smoker Smoking Status: Never smoker alcohol intake frequency: 0-2 drinks per day Substance Use Type: does not use Exam <CARMEN Sheffield - Last Filed: 07/24/19 17:10> Narrative Exam Narrative: GENERAL: This is a well-nourished, well-developed patient, no acute distress. HEAD: Atraumatic. Normocephalic. No temporal or scalp tenderness. EYES: Pupils equal round and reactive. Extraocular motions intact. No scleral icterus. No injection or drainage. ENT: Nose without bleeding, purulent drainage or septal hematoma. Throat without erythema, tonsillar hypertrophy or exudate. Uvula midline. Airway patent. NECK: Trachea midline. No JVD or lymphadenopathy. Supple, nontender, no meningeal signs. CARDIOVASCULAR: Regular rate and rhythm RESPIRATORY: No cough. No increased respiratory effort. No accessory muscle use. EXTREMITIES: Full range of motion noted right hip. Positive pedal pulses right. Pain to palpation right hip and gluteus that is generalized. Able to weightbear. Walking with steady gait. BACK: Nontender without deformity or crepitance. No flank tenderness. NEURO: AOx3. SKIN: No erythema, ecchymosis laceration or abrasion noted on right hip. Initial Vital Signs Initial Vital Signs: Vital Signs Temperature 97.9 F 07/24/19 11:59 Pulse Rate 89 07/24/19 11:59 Respiratory Rate 14 07/24/19 11:59 Blood Pressure 139/93 H 07/24/19 11:59 Pulse Oximetry 99 07/24/19 11:59 <Karli Marrero DO - Last Filed: 07/24/19 19:58> Initial Vital Signs Initial Vital Signs: Vital Signs Temperature 97.9 F 07/24/19 11:59 Pulse Rate 89 07/24/19 11:59 Respiratory Rate 14 07/24/19 11:59 Blood Pressure 139/93 H 07/24/19 11:59 Pulse Oximetry 99 07/24/19 11:59 Course <CARMEN Sheffield - Last Filed: 07/24/19 17:10> Orders Ordered: ED Orders 07/24/19 12:02 XR hip w pel if done RT 2V Stat Discontinued Medications Ketorolac Tromethamine (Toradol) 60 mg IM NOW ONE Stop: 07/24/19 15:01 Last Admin: 07/24/19 15:35 Dose: 60 mg Documented by: BTONER Vital Signs Vital signs: Vital Signs - 8 hr 07/24/19 11:59 07/24/19 15:58 Temperature 97.9 F Pulse Rate 89 69 Respiratory Rate 14 16 Blood Pressure 139/93 H Blood Pressure [Left Arm] 135/83 Pulse Oximetry 99 96 <Karli Marrero DO - Last Filed: 07/24/19 19:58> Orders Ordered: ED Orders 07/24/19 12:02 XR hip w pel if done RT 2V Stat Discontinued Medications Ketorolac Tromethamine (Toradol) 60 mg IM NOW ONE Stop: 07/24/19 15:01 Last Admin: 07/24/19 15:35 Dose: 60 mg Documented by: BTONER Vital Signs Vital signs: Vital Signs - 8 hr 07/24/19 11:59 07/24/19 15:58 Temperature 97.9 F Pulse Rate 89 69 Respiratory Rate 14 16 Blood Pressure 139/93 H Blood Pressure [Left Arm] 135/83 Pulse Oximetry 99 96 MDM - Extremity Injury (Lower) <MODE Sheffield-BC - Last Filed: 07/24/19 17:10> Lab Data Labs: Urine Dip Bedside Urine Glucose Negative Bedside Urine Bilirubin - Negative Bedside Urine Ketone - Negative Urine Specific [place] 1.015 Bedside Urine Occult Blood - Negative Bedside Urine pH 7.0 Bedside Urine Protein - Negative Bedside Urine Urobilinogen - Negative Bedside Urine Nitrite - Negative Bedside Urine Leukocytes - Negative Esterase Imaging Data Extremity x-ray #1: Radiologist's Impression: [address] [place] [id number] XRay Report Signed Patient: Breezy Patel CMR#: [id number] : 4Acct:[id number] Age/Sex: 64 / MDate of Service: 07/24/19 Loc: ED Accession Number: [id number] Procedure: XR hip w pel if done RT 2V Ordering Provider: Karli Marrero D.O. PROCEDURE: XR HIP W PEL IF DONE RT 2V INDICATIONS: recent injury TECHNIQUE: AP pelvis with lateral view(s) of the right hip(s). COMPARISON: CR, SPINE LUMB 2 OR 3VW, 06/17/2016, 11:29. FINDINGS: Bones: No fractures or dislocations. Pelvic ring appears intact. No suspicious bony lesions. Soft tissues: The visualized bowel gas pattern is normal. No suspicious soft tissue calcifications. IMPRESSION: No visualized acute fracture or dislocation. However, if clinical concern and/or pain persist, short interval imaging followup in 7-10 days is recommended, as occult injury cannot be definitively excluded. Dictated by: Marija Keller M.D. on 07/24/2019 at 12:53 Approved by: Marija Keller M.D. on 07/24/2019 at 12:54 [facility] Narrative Medical decision making narrative: The patient is a 64-year-old male who presents with a chief complaint of hip pain after a fall 4 days ago. He states that this is an isolated hip injury. His x-rays negative. He is able to ambulate well without issues. He was given Toradol in the emergency department. I sent a prescription of this in, strict instructions not combine with any other anti-inflammatories. Encouraged follow-up with primary care provider in the next few days. Patient is neurovascular intact throughout stay in the emergency department. Patient has no questions or concerns upon discharge and states understanding of return precautions as well as follow-up care. <Karli Marrero, - Last Filed: 07/24/19 19:58> Lab Data Labs: Urine Dip Bedside Urine Glucose Negative Bedside Urine Bilirubin - Negative Bedside Urine Ketone - Negative Urine Specific [place] 1.015 Bedside Urine Occult Blood - Negative Bedside Urine pH 7.0 Bedside Urine Protein - Negative Bedside Urine Urobilinogen - Negative Bedside Urine Nitrite - Negative Bedside Urine Leukocytes - Negative Esterase Discharge Plan Departure Patient Disposition: Home Clinical Impression: Fall from skis Qualifiers: Encounter type: initial encounter Qualified Code(s): V00.321A - Fall from snow-skis, initial encounter Acute hip pain Qualifiers: Laterality: right Qualified Code(s): M25.551 - Pain in right hip Discharge Date/Time: 07/24/19 16:04 Instructions: Help for Hip Pain, DI for Hip Pain Activity Restrictions/Additional Instructions: As I discussed, your x-ray shows no acute fracture. It is important that you follow up with primary care provider, especially if worsening or no improvement. There can be fractures that did not show up on initial x-ray. I have given you a prescription of Toradol. This is an NSAID. Do not combine it with other NSAIDs such as Aleve or ibuprofen. I suggest taking it with some food, as it can irritate your stomach. Please follow-up with primary care provider in the next few days. Please come back to the emergency department for any acute concerns. I suggest continued rest as well as ice and or heat. Prescriptions: New ketorolac 10 mg tablet 10 mg PO TID PRN (Reason: pain) Qty: 15 RF: 0 No Action methylcellulose (laxative) [Citrucel] 500 MG tablet 500 mg PO DAILY Qty: 0 RF: 0 hyoscyamine sulfate 0.375 mg tablet extended release 12 hr 0.375 mg PO QID PRN (Reason: Spasms) RF: 0 gabapentin 300 mg capsule 300 mg PO BEDTIME RF: 0 sildenafil (pulm.hypertension) 20 mg tablet 100 mg PO PRN PRN (Reason: as directed) RF: 0 venlafaxine [Effexor XR] 75 mg Capsule,Extended Release 24hr 75 mg PO BEDTIME RF: 0 aspirin 81 mg Tablet,Delayed Release (Dr/Ec) 81 mg PO QPM RF: 0 pantoprazole 40 mg Tablet,Delayed Release (Dr/Ec) 40 mg PO BID RF: 0 zolpidem 10 mg Tablet 5 - 10 mg PO BEDTIME PRN (Reason: Sleep) RF: 0 benazepril 40 mg Tablet 40 mg PO QPM RF: 0 Cbd Cream 2:1 1 applic Topical PRN PRN (Reason: DIRECTED) RF: 0
== END 2019-07-24 16:04 | disposition home or self-care (01) ==
PROVIDERS: Emergency Provider Nurse Practitioner Family
DX: M25.551 Pain in right hip (principal); V00.321A Fall from snow-skis, initial encounter
CPT/HCPCS: 73502; 81003; 96372; 99283; J1885

== ENCOUNTER → 2019-11-12 15:03 | Outpatient (CLI) | payer MEDICARE, OTHER, SELFPAY ==
[2019-11-14 09:10] LABS: COVID19 Sendout Not Detected (Not Detected)
== END ==
PROVIDERS: Visit Provider Physician Assistant
DX: R53.83 Other fatigue (principal)
CPT/HCPCS: 87635

== ENCOUNTER → 2020-01-08 14:08 | Outpatient (CLI) | payer MEDICARE, OTHER, SELFPAY ==
[2020-01-09 07:46] LABS: COVID19 Sendout Not Detected (Not Detect)
== END ==
PROVIDERS: Visit Provider Physician Assistant
DX: Z11.59 Encounter for screening for other viral diseases (principal)
CPT/HCPCS: 87635

== ENCOUNTER 2020-01-11 12:02 | Day surgery (SDC) | payer MEDICARE, OTHER, SELFPAY ==
[2020-01-11] VITALS (7 sets, daily range): BP systolic 109–157; BP diastolic 78–100; PULSE 64–78; RESP 11–18; TEMP 36.1–36.4; O2SAT 94–99; BMI 49.3
[2020-01-11] MEDS: LACTATED RINGERS 1,000 ML 200 ML IV (12:24)
--- NOTE | 2020-01-11 13:07 | PM.HP.1 ---
History of Present Illness History of Present Illness Date Patient Seen: 01/11/20 Time Patient Seen: 13:08 Chief complaint: SDC Narrative: THE PATIENT PRESENTS FOR COLORECTAL SREENING. IT PRIOR COLONOSCOPY YEARS AGO THAT DEMONSTRATED SEVERAL ADENOMATOUS POLYPS WHICH WERE RESECTED.. NO PERSONAL OR FAMILY HISTORY OF COLON CANCER. ON FURTHER HISTORY DENIES ANY RECENT GASTROINTESTINAL SYMPTOMS. NO NAUSEA, VOMITING, ABDOMINAL PAIN, LOSS OF APPETITE, UNEXPLAINED WEIGHT LOSS, CHANGE IN BOWEL HABITS, DIARRHEA, CONSTIPATION, MELENA, HEMATOCHEZIA, OR BRIGHT RED BLOOD PER RECTUM. Patient History Medical History Diverticulitis (Acute) HTN (hypertension) (Acute) Surgical History History of appendectomy (Acute) Family & Social History Social History: household members spouse Tobacco & Substance use: Smoking Status Never smoker alcohol intake current alcohol intake frequency 3 or more drinks per day Substance Use Type does not use Meds Home Medications and Allergies Home Medications Medication Instructions Recorded Confirmed Type Citrucel 500 mg PO DAILY #0 08/11/17 01/11/20 History aspirin 81 mg PO QPM 02/17/18 01/11/20 History benazepril 40 mg PO QPM 02/17/18 07/24/19 History pantoprazole 40 mg PO BID 02/17/18 07/24/19 History zolpidem 5 - 10 mg PO BEDTIME PRN 02/17/18 01/11/20 History gabapentin 300 mg PO BEDTIME 07/24/19 01/11/20 History hyoscyamine sulfate 0.375 mg PO QID PRN 07/24/19 07/24/19 History sildenafil (pulm.hypertension) 100 mg PO PRN PRN 07/24/19 01/11/20 History acetaminophen [Tylenol Extra 1,000 mg PO BID 01/11/20 01/11/20 History Strength] atorvastatin 20 mg PO DAILY 01/11/20 01/11/20 History Allergies Allergy/AdvReac Type Severity Reaction Status Date / Time walnut [WALNUT] Allergy Severe Anaphylaxis Verified 11/12/19 15:15 tadalafil [From CIALIS] Allergy Intermediate Anxiety Verified 11/12/19 15:15 acetaminophen [From Percocet] AdvReac Intermediate Agitated Verified 01/11/20 12:18 oxycodone [From Percocet] AdvReac Intermediate Agitated Verified 01/11/20 12:18 paracetamol AdvReac Intermediate [place] Uncoded 01/11/20 12:19 Review of Systems Review of Systems Narrative: A 10 point review of systems is negative except as noted in the HPI Exam Vital Signs (past 8 hours): - 01/11/20 12:36 Temperature 96.9 F L Pulse Rate 78 Respiratory Rate 18 Blood Pressure 157/100 H Pulse Oximetry 99 Oxygen Delivery Method Room Air Narrative Exam Narrative: General-no acute distress, well nourished adult male HEENT-moist mucous membranes, no scleral icterus Neck-supple, no lymphadenopathy Chest- non labored respirations, clear to auscultation bilaterally Cardiac-regular rate no peripheral edema Abdomen-soft, nontender, non distended Extremities-warm, well perfused Neurological-alert and oriented, no focal deficits Assessment & Plan Assessment and plan (1) Screening for colon cancer: Status: Acute Assessment & Plan narrative: The patient requires colorectal screening and colonoscopy is recommended. Technical details were discussed. Risks, benefits, alternatives explained. Risks including but not limited to myocardial infarction, aspiration, bleeding, pain, missed lesion, incomplete examination, need for further radiographic studies, colonic perforation, and need for major abdominal surgery were discussed. All questions were answered to their satisfaction, and they are in agreement with this plan. COVID-19 COVID-19 status: Negative
[2020-01-11] MEDS: fentaNYL 250 MCG/5 ML INJ IV (13:35)
[2020-01-11] MEDS: MIDAZOLAM 5 MG/5 ML VIAL IV (13:35)
--- NOTE | 2020-01-11 13:35 | P.OP.ENDO_ITS ---
Operative Date/Time/Diagnoses Date of procedure: 01/11/20 Time of procedure: 13:35 Pre-op diagnosis: Screening colonoscopy, history of adenomatous polyps Post-op diagnosis: same Procedure & Clinicians Study performed: Colonoscopy Same procedure as scheduled: Yes Indications: 64-year-old man last colonoscopy 5 years ago demonstrated adenomato us polyps is here for routine screening colonoscopy Surgeon: Pete Tripathi Procedure Notes SCOAP/Timeout: Performed Procedure in detail: Patient placed in left lateral recumbent position. Time out was performed. Procedural sedation was administered with Versed and Fentanyl. Examination began with a thorough inspection of the perianal area there was no evidence of fissures, fistulae, external hemorrhoids or cutaneous malignancy. The colonoscopy scope was then placed into the rectum the the lumen was insufflated with air. The scope was carefully advanced forward. Ultimately the cecum was intubated and confirmed by identification of the ileocecal valve and the confluence of the taenia. The scope was then slowly withdrawn examining colon thoroughly in all directions. In the rectum the rectal columns were identified and retroflexion of the scope was performed for inspection of the distal rectum and anal canal. The colonoscopy was notable for the followin. Quality of the preparation-good 2. Sigmoid diverticulosis 3. No masses or polyps 4. Grade 1 internal hemorrhoids Scope withdrawal time: 6 Sedation minutes: 30 Findings: diverticulosis and internal hemorrhoids Specimen(s): none sent Complications: none Impression: Diverticulosis Post-procedure Recommendations: Colonscopy in 10 years and High fiber diet Disposition: same day surgery
== END 2020-01-11 14:42 | disposition home or self-care (01) ==
PROVIDERS: PCP Internal Medicine; Referring Provider Internal Medicine; Visit Provider Surgery
PROC: 0DJD8ZZ Inspection of Lower Intestinal Tract, Via Natural or Artificial Opening Endoscopic (ICD-10-PCS; CPT 45378; principal; 2020-01-11 13:00)
DX: Z12.11 Encounter for screening for malignant neoplasm of colon (principal); Z86.010 Personal history of colon polyps; I10 Essential (primary) hypertension; K57.30 Diverticulosis of large intestine without perforation or abscess without bleeding; K64.0 First degree hemorrhoids
CPT/HCPCS: G0105; 99152; 99153; J2250; J3010

== ENCOUNTER → 2020-09-26 10:20 | Outpatient (CLI) | payer MEDICARE, OTHER, SELFPAY ==
[2020-09-26 13:41] LABS: Alanine Aminotransferase 19 IU/L (<50); Albumin 4.6 g/dL (3.5-5.0); Albumin Globulin Ratio 1.5 (1.0-2.8); Alkaline Phosphatase 56 U/L (38-126); Aspartate Aminotransferase 34 IU/L (17-59); BUN Creatinine Ratio 14.6 (6-22); Bilirubin Total 0.4 mg/dL (0.2-1.3); Blood Urea Nitrogen 13 mg/dL (9-20); Calcium 9.5 mg/dL (8.4-10.2); Carbon Dioxide 26 mmol/L (22-32); Chloride 101 mmol/L (98-107); Cholesterol 223 mg/dL (140-199); Estimated Glomerular Filt Rate > 60.0 mL/min (>60); Globulin 3.1 g/dL (1.7-4.1); Glucose 74 mg/dL (80-110); HDL Cholesterol 74 mg/dL (40-60); HEMOLYSIS < 15 (0-50); LDL Cholesterol Calculated 119 mg/dL (<100); Potassium 4.2 mmol/L (3.4-5.1); Sodium 138 mmol/L (137-145); Total Protein 7.7 g/dL (6.3-8.2); Triglycerides 152 mg/dL (35-150)
== END ==
PROVIDERS: PCP Internal Medicine; Referring Provider Family Medicine; Visit Provider Internal Medicine
DX: E78.5 Hyperlipidemia, unspecified (principal); I10 Essential (primary) hypertension
CPT/HCPCS: 36415; 80053; 80061

== ENCOUNTER → 2021-04-14 09:09 | Outpatient (CLI) | payer MEDICARE, OTHER, SELFPAY ==
[2021-04-14 11:19] LABS: Alanine Aminotransferase 17 IU/L (<50); Albumin 4.8 g/dL (3.5-5.0); Albumin Globulin Ratio 1.7 (1.0-2.8); Alkaline Phosphatase 52 U/L (38-126); Aspartate Aminotransferase 26 IU/L (17-59); BUN Creatinine Ratio 15.3 (6-22); Bilirubin Total 0.5 mg/dL (0.2-1.3); Blood Urea Nitrogen 15 mg/dL (9-20); Carbon Dioxide 27 mmol/L (22-32); Chloride 101 mmol/L (98-107); Cholesterol 201 mg/dL (140-199); Estimated Glomerular Filt Rate > 60.0 mL/min (>60); Globulin 2.8 g/dL (1.7-4.1); Glucose 87 mg/dL (80-110); HDL Cholesterol 80 mg/dL (40-60); HEMOLYSIS < 15 (0-50); LDL Cholesterol Calculated 103 mg/dL (<100); Potassium 5.1 mmol/L (3.4-5.1); Sodium 140 mmol/L (137-145); Total Protein 7.6 g/dL (6.3-8.2); Triglycerides 88 mg/dL (35-150)
== END ==
PROVIDERS: PCP Internal Medicine; Referring Provider Internal Medicine; Visit Provider Internal Medicine
DX: E78.5 Hyperlipidemia, unspecified (principal)
CPT/HCPCS: 36415; 80053; 80061

== ENCOUNTER → 2021-07-28 10:29 | Outpatient (CLI) | payer MEDICARE, OTHER, SELFPAY ==
[2021-07-28 12:55] LABS: COVID19 -Nasal RAPID Negative (Negative)
== END ==
PROVIDERS: PCP Internal Medicine; Visit Provider Surgery
DX: Z01.812 Encounter for preprocedural laboratory examination (principal); Z20.822 Contact with and (suspected) exposure to COVID-19
CPT/HCPCS: 87635; C9803

== ENCOUNTER 2021-07-30 07:40 | Day surgery (SDC) | payer MEDICARE, OTHER, SELFPAY ==
[2021-07-25 13:24] VITALS: BMI 22.5
[2021-07-30] VITALS (7 sets, daily range): BP systolic 122–151; BP diastolic 80–96; PULSE 76–99; RESP 9–16; TEMP 36.4–37.2; O2SAT 93–99; BMI 22.5
[2021-07-30] MEDS: LACTATED RINGERS 1,000 ML 100 ML IV (08:21)
--- NOTE | 2021-07-30 08:48 | P.HP_ITS ---
History of Present Illness History of Present Illness Date Patient Seen: 07/30/21 Time Patient Seen: 08:48 [place] [facility] [place]ative: 66 M with RIH symptomatic and reducible here for elective repair. No acute concerns today. Patient History Medical History Anxiety Arthritis Depression Diverticulitis GERD (gastroesophageal reflux disease) HLD (hyperlipidemia) HTN (hypertension) Irregular heart beat Kidney disease PURNIMA (obstructive sleep apnea) Surgical History History of appendectomy History of colonoscopy Family & Social History Social History: household members spouse Tobacco & Substance use: Smoking Status Never smoker alcohol intake current alcohol intake frequency 0-2 drinks per day Substance Use Type does not use Meds Home Medications and Allergies Home Medications Medication Instructions Recorded Confirmed Type methylcellulose (laxative) 500 mg 500 mg PO DAILY #0 08/11/17 07/30/21 History tablet (Citrucel) aspirin 81 mg tablet,delayed 81 mg PO QPM 02/17/18 07/30/21 History release benazepril 40 mg tablet 40 mg PO QPM 02/17/18 07/30/21 History pantoprazole 40 mg tablet,delayed 40 mg PO BID 02/17/18 07/30/21 History release zolpidem 10 mg tablet 5 - 10 mg PO BEDTIME PRN 02/17/18 07/30/21 History hyoscyamine sulfate 0.375 mg 0.375 mg PO QID PRN 07/24/19 07/30/21 History tablet,extended release,12 hr acetaminophen 500 mg tablet 1,000 mg PO BID 01/11/20 07/30/21 History (Tylenol Extra Strength) Allergies Allergy/AdvReac Type Severity Reaction Status Date / Time walnut [WALNUT] Allergy Severe Anaphylaxis Verified 07/30/21 08:05 tadalafil [From CIALIS] Allergy Intermediate Anxiety Verified 07/30/21 08:05 acetaminophen [From Percocet] AdvReac Intermediate Agitated Verified 07/30/21 08:05 oxycodone [From Percocet] AdvReac Intermediate Agitated Verified 07/30/21 08:05 paracetamol AdvReac Intermediate [place] Uncoded 07/25/21 11:50 Exam Vital Signs (past 8 hours): - 07/30/21 08:09 Temperature 98.9 F Pulse Rate 99 H Respiratory Rate 16 Blood Pressure 151/96 H Pulse Oximetry 99 Oxygen Delivery Method Room Air Narrative Exam Narrative: General-no acute distress, well nourished adult male HEENT-moist mucous membranes, no scleral icterus Neck-supple, no lymphadenopathy Chest- non labored respirations, clear to auscultation bilaterally Cardiac-regular rate no peripheral edema Abdomen-soft, nontender, non distended Extremities-warm, well perfused Neurological-alert and oriented, no focal deficits Assessment & Plan Assessment and plan (1) Right inguinal hernia: Status: Acute Assessment & Plan narrative: 66 y.o man with a right inguinal hernia here for elective repair. Operative risks again discussed bleeding, infection, reoccurrence, chronic pain. Questions answered in agreement with this plan. Time Spent With Patient Critical Care time: I spent a total of [] minutes of critical care time on this patient's care today; this time is exclusive of procedural time.
--- NOTE | 2021-07-30 09:07 | SUR.OPER ---
Supine on padded OR bed, head on pillow, arms secured on padded arm boards at <90 degrees abduction, legs uncrossed, safety belt at thigh, tape over blanket over lower legs.
[2021-07-30] MEDS: CEFAZOLIN 2 GM/20 ML SYRINGE IV (09:10)
[2021-07-30] MEDS: BUPIVACAINE 0.25% (PF) VIAL 30 ML INJ (09:14)
[2021-07-30] MEDS: TRAMADOL 50 MG TABLET PO (10:58)
--- NOTE | 2021-07-30 11:22 | SUR.PHASEII ---
Pt ready to go, stated pain tolerable, tolerating po flds and snack. Pt assisted to dress, R leg weak, pt aware to make sure he can bear weight before getting up.
--- NOTE | 2021-07-30 12:49 | PM.OP.1 ---
Operative Date/Time/Diagnoses Date of procedure: 07/30/21 Time of procedure: 12:49 Pre-op diagnosis: right inguinal hernia Post-op diagnosis: same Procedure & Clinicians Procedure: open right inguinal hernia repair with mesh Same procedure as scheduled: Yes Indications: reducible symptomatic inguinal hernia Surgeon: Pete Cordon Yes if Unassisted: Yes Anesthesia Type: General Operative Notes Findings: The patient was placed supine on the table and bilateral lower extremity compression devices were applied. Anesthesia was induced they were intubated with an LMA and received Ancef. A time-out was performed. They were prepped and draped in sterile fashion. The right external inguinal ring and the anterior superior iliac crest were identified and marked. 1 finger breath above the inguinal ligament the skin was infiltrated with 0.25% bupivacaine. The skin incision was made here and the subcutaneous tissues were divided with electrocautery exposing the external oblique aponeurosis which was then opened along the direction of its fibers. Using blunt dissection the internal oblique aporneurosis was from the external oblique upper leaflet to identify the iliohypogastric nerve. Using a kittner the cord was carefully dissected away from the inguinal canal adjacent to the pubic tubercle. The cord including the vas deferens, testicular bloody supply, ilioguinal and genital nerve were encircled with a [place] drain. A direct floor defect was identified and it was reduced into the abdomen and the internal oblique aporneuorsis was approximated to the inguinal ligament with Ethibond suture to reapproximate the floor. The cremasteric fibers surrounding the cord were divided using electrocautery adjacent to the internal ring.. The vas deferens and the testicular vessels were preserved and protected. There was no evidence of an indirect hernia but the internal ring was very dilated and a plug of mesh was placed into it secured to the surrounding fashica. I selected a 7x 15 cm lightweight Pro Loop hernia mesh. The inferior medial aspect of the mesh was anchored to insertion of the rectus muscle to the pubic tubercle such that there was approximately 2 cm of tubercle overlap with Ethibond and then was run continuously along the inferior edge of the mesh to the shelving edge of the inguinal ligament. Interrupted 3 0 Vicryl suture was used to anchor the superior aspect of the mesh to the conjoined tendon in several places. The tails were then reapproximated loosely around the spermatic cord. The tails of the mesh were then tucked under the external oblique aponeurosis. The repair was checked for hemostasis. The wound was irrigated with sterile saline. The external oblique aponeurosis was reapproximated in a running fashion using 3 0 Vicryl. The subcutaneous tissues were reapproximated with 3 0 Vicryl skin closed with 4 0 Monocryl followed by the application of Dermabond. At the end of the operation I ensured that both testicles were within the scrotum. The sponge instrument count at the end operation was correct. The patient emerged from anesthesia was extubated and transferred to the postoperative care unit in stable condition. A total of 30 ml of of 0.25% bupivicaine was used to infiltrate the skin. Specimen(s): none sent Estimated Blood Loss (mL): 10 Complications: none Post-operative Condition: stable Disposition: same day surgery
== END 2021-07-30 11:25 | disposition home or self-care (01) ==
PROVIDERS: PCP Internal Medicine; Referring Provider Surgery; Visit Provider Surgery
PROC: (CPT 49505; principal; 2021-07-30 08:45)
DX: K40.90 Unilateral inguinal hernia, without obstruction or gangrene, not specified as recurrent (principal); I10 Essential (primary) hypertension; K21.9 Gastro-esophageal reflux disease without esophagitis
CPT/HCPCS: 49505; 82962; J0330; J0690; J1885; J2704; J3010

== ENCOUNTER 2022-06-22 02:15 | Emergency (ER) | payer MEDICARE, OTHER, SELFPAY ==
[2022-06-22 02:25] VITALS: BP 148/94; PULSE 106; RESP 16; TEMP 36.5; O2SAT 98; BMI 21.3
--- NOTE | 2022-06-22 02:47 | ED.GENADULT ---
HPI - General Adult General Chief complaint: Syncope Stated complaint: right side head laceration above eye Time Seen by Provider: 06/22/22 02:17 Source: patient and family Mode of arrival: Ambulatory Limitations: no limitations History of Present Illness HPI narrative: Patient is a 66-year-old male. Not on anticoagulation who is here for evaluation of a syncopal episode at home leading to a cut above his right eye. It was witnessed by his . Apparently he was standing when the symptoms occurred and then he fell. He denied any prodromal symptoms to include chest pain, palpitations, lightheadedness. He did have loss of bladder control. His thought that he was somewhat confused afterwards but the patient states that he was confused about why he fell but he knew where he was. He did hit his head. He is no extremity pain. No neck pain. Sustained a cut above his right eye but no other injuries. He is no current complaints. He has had 2 episodes of what he states was vasovagal syncope many years ago. He thought this was related to events around some stress in his life the time. Patient ambulated into the emergency department. His states he has had an issue with atrial fibrillation in the past and also a slow heart rate and a fast heart rate. Related Data Home Medications Medication Instructions Recorded Confirmed methylcellulose (laxative) 500 mg 500 mg PO DAILY ##0 08/11/17 08/14/21 tablet (Citrucel) aspirin 81 mg tablet,delayed 81 mg PO QPM 02/17/18 08/14/21 release benazepril 40 mg tablet 40 mg PO QPM 02/17/18 08/14/21 pantoprazole 40 mg tablet,delayed 40 mg PO BID 02/17/18 08/14/21 release zolpidem 10 mg tablet 5 - 10 mg PO BEDTIME PRN Sleep 02/17/18 08/14/21 hyoscyamine sulfate 0.375 mg 0.375 mg PO QID PRN Spasms 07/24/19 08/14/21 tablet,extended release,12 hr acetaminophen 500 mg tablet 1,000 mg PO BID 01/11/20 08/14/21 (Tylenol Extra Strength) Previous Rx's Medication Instructions Recorded ibuprofen 200 mg tablet 400 mg PO Q6H #60 tabs 07/30/21 tramadol 50 mg tablet 50 mg PO Q6H PRN pain #30 tabs 07/30/21 Allergies Allergy/AdvReac Type Severity Reaction Status Date / Time walnut [WALNUT] Allergy Severe Anaphylaxis Verified 08/14/21 09:57 tadalafil [From CIALIS] Allergy Intermediate Anxiety Verified 08/14/21 09:57 acetaminophen [From Percocet] AdvReac Intermediate Agitated Verified 08/14/21 09:57 oxycodone [From Percocet] AdvReac Intermediate Agitated Verified 08/14/21 09:57 paracetamol AdvReac Intermediate [place]ushing Uncoded 08/14/21 09:57 Review of Systems Review of Systems ROS Unobtainable: All systems reviewed & are unremarkable except as noted in HPI and below Constitutional Constitutional: Reports system reviewed and no additional complaints, except as documented Eyes Eyes: Reports system reviewed and no additional complaints, except as documented Cardiovascular Cardiovascular: Reports system reviewed and no additional complaints, except as documented Respiratory Respiratory: Reports system reviewed and no additional complaints, except as documented Gastrointestinal Gastrointestinal: Reports system reviewed and no additional complaints, except as documented Integumentary/Breasts Skin/Breast: Reports system reviewed and no additional complaints, except as documented Neurologic Neurologic: Reports system reviewed and no additional complaints, except as documented Hematologic/Lymphatic On Anticoagulants: No Patient History Medical History Anxiety Arthritis Depression Diverticulitis GERD (gastroesophageal reflux disease) HLD (hyperlipidemia) HTN (hypertension) Irregular heart beat Kidney disease PURNIMA (obstructive sleep apnea) Surgical History History of appendectomy History of colonoscopy Social History household members: spouse Smoking Status: Never smoker alcohol intake: current Smoking Status: Never smoker alcohol intake frequency: 0-2 drinks per day Substance Use Type: does not use Exam Initial Vital Signs Initial Vital Signs: Vital Signs Temperature 97.7 F 06/22/22 02:25 Pulse Rate 106 H 06/22/22 02:25 Respiratory Rate 16 06/22/22 02:25 Blood Pressure 148/94 H 06/22/22 02:25 Pulse Oximetry 98 06/22/22 02:25 Oxygen Delivery Method 06/22/22 02:25 Const General: cooperative, comfortable, well developed and No ill appearing HENMT Head: laceration (Above right eye) Nose: external nose normal Face and sinus: normal facial exam Mouth: oral mucosae normal Eyes EOM: EOM intact bilaterally Resp Effort & Inspection: normal respiratory effort Cardio Rate: regular rate Skin Other: 3 cm laceration superior lateral aspect of the right eye. No active bleeding. Neuro General: patient alert, patient awake, patient oriented x3, moves all extremities and no focal motor deficits Cognition: normal cognition Speech: speech normal Gait: normal gait Extrem General: normal to inspection and capillary refill normal Psych Appearance: grossly normal and well kempt Procedures Laceration Repair Laceration 1: Site: face Side (If applicable): right Size (cm): 4 Description: linear Depth: simple, single layer Local Anesthetic: lidocaine 1% and with epi Amount of anesthesia used (mL): 3 Skin layer closed with: nylon Skin layer suture size: 4-0 Number of sutures: 5 Technique: simple, interrupted Scores Greek CT Head Rule Age <16 years old: No Patient on blood thinners: No Seizure after injury: No Exclusion: Patient NOT Excluded, Proceed to next steps GCS < 15 at 2 hr post trauma: No Suspected open or depressed skull fracture: No Any sign of basilar skull fracture (hemotympanum, raccoon eyes, Billingsley's sign, CSF keira-/rhinorrhea): No Two or more episodes of vomiting: No Age greater or equal to 65 years: Yes Retrograde amnesia to the event greater or equal to 30 min: No Dangerous Mechanism (pedestrian vs. mv, occupant ejected from mv, fall from >3 ft or > 5 stairs): No Recommendation: Consider CT. The Greek Head CT Rule cannot rule out need for Imaging. GCS [place] coma scale eye opening: Spontaneous [place] coma scale verbal response: Orientated [place] coma scale motor response: Obey commands [place] coma scale total score: 15 Nexus Score for C-Spine Focal Neurologic deficit present: No Midline spinal tenderness present: No Altered level of conciousness present: No Intoxication present: No Distracting Injury Present: No Nexus Criteria for C-spine: 0 Course Orders Ordered: ED Orders 06/22/22 02:29 EKG-12 Lead Stat 06/22/22 03:00 Basic Metabolic Panel Stat Complete Blood Count AUTO DIFF Stat Prolactin Stat Discontinued Medications Bacitracin (Bacitracin Oint 0.9 Gm Pckt) 1 applic TOP NOW ONE Stop: 06/22/22 02:48 Last Admin: 06/22/22 03:00 Dose: 1 applic Documented By: MARILYN Vital Signs Vital signs: Vital Signs - 8 hr 06/22/22 02:25 Temperature 97.7 F Pulse Rate 106 H Respiratory Rate 16 Blood Pressure 148/94 H Pulse Oximetry 98 Oxygen Delivery Method Room Air Medical Decision Making Differential Diagnosis Differential Diagnosis: Syncope, seizure, arrhythmia, vasovagal, CVA, and others Condition is:: Resolved Condition is at treatment goal?: Yes Lab Data Lab results reviewed: Yes I reviewed the patient's lab results. Result diagrams: 06/22/22 03:00 06/22/22 03:00 Labs: Lab Results 06/22/22 06/22/22 Range/Units 03:00 03:00 WBC 15.0 H (4.5-11.0) X10^3/uL RBC 4.34 L (4.5-5.9) X10^6/uL Hgb 13.9 (13.5-17.5) g/dL Hct 41.5 (41-53) % MCV 95.7 (80-100) fL MCH 32.1 (26-34) PG MCHC 33.5 (30-36) % RDW 13.2 (11.6-14.8) % Plt Count 247 (150-400) X10^3/uL Neut % (Auto) 85.7 H (50-75) % Lymph % (Auto) 6.9 L (25-40) % [place] % (Auto) 6.8 (3-14) % Eos % (Auto) 0.4 L (2-4) % Baso % (Auto) 0.2 (0-2) % Neut # (Auto) 87441 H (9261-6943) /uL Lymph # (Auto) 1000 L (6935-5208) /uL [place] # (Auto) 1000 H (0-900) /uL Eos # (Auto) 100 (0-450) /uL Baso # (Auto) 0 (0-100) /uL Sodium 136 L (137-145) mmol/L Potassium 3.7 (3.4-5.1) mmol/L Chloride 99 (98-107) mmol/L Carbon Dioxide 21 L (22-32) mmol/L BUN 18 (9-20) mg/dL Creatinine 0.92 (0.66-1.25) mg/dL Estimated GFR > 60 (>60) mL/min BUN/Creatinine Ratio 19.6 (6-22) Glucose 137 H (80-110) mg/dL Calcium 8.7 (8.4-10.2) mg/dL Prolactin 19.0 H (3.7-17.9) ng/mL ECG Data Attestation: I personally reviewed and interpreted this ECG as follows: Interpretation: Sinus rhythm Ventricular rate 87 Normal axis Normal QRS Normal QTC No ST T wave changes MDM Narrative Medical decision making narrative: Unsure the exact etiology of the patient's syncope. I have low suspicion for CVA/TIA. We did discuss the possibility of an arrhythmia. He has an history of both tachycardia/bradycardia and also atrial fibrillation. His EKG today shows a normal QTC in sinus rhythm with a normal rate. We also considered other etiologies such as seizure. He did have a loss of bladder control but does not seem to have had any postictal state. If he had a seizure he is certainly back to normal at the time of my exam. His electrolytes were unremarkable. Does not appear that he tripped. He is low risk per the [place] syncope rule. The plan will be is to have him talk with his primary doctor about this to discuss the indications for Holter monitor. He was given return precautions. He did sustain a cut above his right eye. Was closed as described above. He was given care instructions and return precautions with regard to this as well. He reports no other injuries from the event. Neck is cleared by nexus criteria. I did consider performing a head CT given his age however he ambulated without problems. Has no focal neurologic deficits. Has no neck pain. Will hold on the head CT for now but if he does return if the symptoms reoccur would highly recommend taking head CT at that point. He was given specific return precautions. He expressed understanding and agreement. Discharge Plan Departure Patient Disposition: Home Clinical Impression: Syncope, Forehead laceration Instructions: DI for Syncope in Adults (Fainting), DI for Laceration Repair -- Simple Activity Restrictions/Additional Instructions: Continue all of your medications as directed. I do recommend that you contact your primary doctor for follow-up to discuss the syncopal episode that you had this evening. He may want to talk with her about the indications for a Holter monitor. The stitches do need to come out in 7-10 days. You can put topical antibiotic ointment over the area and shower like normal. Return to the emergency department for any new or worsening symptoms. Prescriptions: No Action Citrucel 500 MG tablet 500 mg PO DAILY Qty: 0 hyoscyamine sulfate 0.375 mg tablet extended release 12 hr 0.375 mg PO QID PRN (Reason: Spasms) Label Comments: TK 1 T PO QID PRF SPASM acetaminophen [Tylenol Extra Strength] 500 mg Tablet 1,000 mg PO BID tramadol 50 mg tablet 50 mg PO Q6H PRN (Reason: pain) Qty: 30 0RF ibuprofen 200 mg tablet 400 mg PO Q6H Qty: 60 0RF aspirin 81 mg Tablet,Delayed Release (Dr/Ec) 81 mg PO QPM pantoprazole 40 mg Tablet,Delayed Release (Dr/Ec) 40 mg PO BID zolpidem 10 mg Tablet 5 - 10 mg PO BEDTIME PRN (Reason: Sleep) benazepril 40 mg Tablet 40 mg PO QPM Stand Alone Forms: Patient Portal/API
[2022-06-22] MEDS: BACITRACIN OINT 0.9 GM PCKT 1 APPLIC TOP (03:00)
[2022-06-22 03:06] LABS: Add Manual Diff / Slide Review NO; Basophils Absolute Auto 0 /uL (0-100); Basophils Percent Auto 0.2 % (0-2); Eosinophils Absolute Auto 100 /uL (0-450); Eosinophils Percent Auto 0.4 % (2-4); Hematocrit 41.5 % (41-53); Hemoglobin 13.9 g/dL (13.5-17.5); Lymphocytes Absolute Auto 1000 /uL (1100-4500); Lymphocytes Percent Auto 6.9 % (25-40); Mean Corpuscular HGB Conc 33.5 % (30-36); Mean Corpuscular Hemoglobin 32.1 PG (26-34); Mean Corpuscular Volume 95.7 fL (80-100); Monocytes Absolute Auto 1000 /uL (0-900); Monocytes Percent Auto 6.8 % (3-14); Neutrophils Absolute Auto 12900 /uL (1500-7000); Neutrophils Percent Auto 85.7 % (50-75); Platelet Count 247 X10^3/uL (150-400); Red Blood Cell Count 4.34 X10^6/uL (4.5-5.9); Red Cell Distribution Width 13.2 % (11.6-14.8)
[2022-06-22 03:16] LABS: BUN Creatinine Ratio 19.6 (6-22); Blood Urea Nitrogen 18 mg/dL (9-20); Calcium 8.7 mg/dL (8.4-10.2); Carbon Dioxide 21 mmol/L (22-32); Chloride 99 mmol/L (98-107); Estimated Glomerular Filt Rate > 60 mL/min (>60); Glucose 137 mg/dL (80-110); HEMOLYSIS < 15 (0-50); Potassium 3.7 mmol/L (3.4-5.1); Sodium 136 mmol/L (137-145)
[2022-06-22 04:05] VITALS: BP 126/84; PULSE 86; RESP 16; TEMP 36.6; O2SAT 95
== END 2022-06-22 04:06 | disposition home or self-care (01) ==
PROVIDERS: Emergency Provider Emergency Medicine
DX: S01.81XA Laceration without foreign body of other part of head, initial encounter (principal); R55 Syncope and collapse; W18.30XA Fall on same level, unspecified, initial encounter
CPT/HCPCS: 12013; 36415; 80048; 84146; 85025; 93005; 99283

== ENCOUNTER 2022-06-26 10:41 | Emergency (ER) | payer MEDICARE, OTHER, SELFPAY ==
[2022-06-26 10:54] VITALS: BP 181/92; PULSE 90; RESP 18; O2SAT 99
--- NOTE | 2022-06-26 11:00 | ED.SKABFB ---
HPI - Skin/Abscess/Foreign Bdy General Chief complaint: Skin/Abscess/Foreign Body Stated complaint: needs stitches removed Time Seen by Provider: 06/26/22 10:56 Source: patient Mode of arrival: Ambulatory Limitations: no limitations History of Present Illness HPI narrative: This is a 66-year-old male who presents for wound recheck. Patient had 5 stitches placed in his right brow on Wednesday, 5 days ago. Patient states he was told for recheck in 5-7 days. He notes a little bit of redness on Wednesday. He states there is a little swelling of his left eyelid but thinks that is more bruising. States no drainage no odor. No increasing pain. States he has been sleeping in on a lot. Denies any other issues. Related Data Home Medications Medication Instructions Recorded Confirmed methylcellulose (laxative) 500 mg 500 mg PO DAILY ##0 08/11/17 08/14/21 tablet (Citrucel) aspirin 81 mg tablet,delayed 81 mg PO QPM 02/17/18 08/14/21 release benazepril 40 mg tablet 40 mg PO QPM 02/17/18 08/14/21 pantoprazole 40 mg tablet,delayed 40 mg PO BID 02/17/18 08/14/21 release zolpidem 10 mg tablet 5 - 10 mg PO BEDTIME PRN Sleep 02/17/18 08/14/21 hyoscyamine sulfate 0.375 mg 0.375 mg PO QID PRN Spasms 07/24/19 08/14/21 tablet,extended release,12 hr acetaminophen 500 mg tablet 1,000 mg PO BID 01/11/20 08/14/21 (Tylenol Extra Strength) Previous Rx's Medication Instructions Recorded ibuprofen 200 mg tablet 400 mg PO Q6H #60 tabs 07/30/21 tramadol 50 mg tablet 50 mg PO Q6H PRN pain #30 tabs 07/30/21 cephalexin 500 mg capsule 500 mg PO Q6H 5 days #20 caps 06/26/22 Allergies Allergy/AdvReac Type Severity Reaction Status Date / Time walnut [WALNUT] Allergy Severe Anaphylaxis Verified 08/14/21 09:57 tadalafil [From CIALIS] Allergy Intermediate Anxiety Verified 08/14/21 09:57 acetaminophen [From Percocet] AdvReac Intermediate Agitated Verified 08/14/21 09:57 oxycodone [From Percocet] AdvReac Intermediate Agitated Verified 08/14/21 09:57 paracetamol AdvReac Intermediate Flushing Uncoded 08/14/21 09:57 Review of Systems Review of Systems ROS Unobtainable: All systems reviewed & are unremarkable except as noted in HPI and below Patient History Medical History Anxiety Arthritis Depression Diverticulitis GERD (gastroesophageal reflux disease) HLD (hyperlipidemia) HTN (hypertension) Irregular heart beat Kidney disease PURNIMA (obstructive sleep apnea) Surgical History History of appendectomy History of colonoscopy Social History household members: spouse Smoking Status: Never smoker alcohol intake: current Smoking Status: Never smoker alcohol intake frequency: 0-2 drinks per day Alcohol type: wine Substance Use Type: does not use Exam Narrative Exam Narrative: GEN: well nourished, well appearing male, alert and oriented x 3, patient appears to be in mild distress. HEENT: Atraumatic except for 5 sutures over the right brow, mostly intact but do not appear to be fully healed particularly the most lateral 2. There is some very slight erythema at the site slightly extends to the upper lid but there is also some slight ecchymosis of the upper lid as well., pupils are equal round reactive to light, extraocular movements are intact, nares are clear, TMs are clear with no fluid, there is no conjunctival pallor. Throat is clear without any exudates, erythema, tonsillar enlargement or uvular deviation MSCL: Non-tender, no muscle atrophy, muscles strength 5/5 upper and lower extremities, full range of motion, normal gait NEURO:CN 2-12 intact, sensation normal SKIN: see above. Initial Vital Signs Initial Vital Signs: Vital Signs Pulse Rate 90 06/26/22 10:54 Respiratory Rate 18 06/26/22 10:54 Blood Pressure 181/92 H 06/26/22 10:54 Pulse Oximetry 99 06/26/22 10:54 Oxygen Delivery Method 06/26/22 10:54 Course Vital Signs Vital signs: Vital Signs - 8 hr 06/26/22 10:54 Pulse Rate 90 Respiratory Rate 18 Blood Pressure 181/92 H Pulse Oximetry 99 Oxygen Delivery Method Room Air MDM - Skin/Abscess/Foreign Bdy MDM Narrative Medical decision making narrative: This is a 58-year-old male with 5 sutures and his right upper brow. Do not appear ready he is only had 5 days. Questionable infection there may be just some swelling from bruising. Discussed with patient if any increasing redness or concerns to start antibiotic return in 2-3 days for recheck for likely suture removal. Discharge Plan Departure Patient Disposition: Home Clinical Impression: Encounter for wound re-check Activity Restrictions/Additional Instructions: Please follow-up for recheck in 2-3 more days for suture removal. Your prescription for antibiotics was sent, take 1 tablet every 4 hours for 5 days. Prescription sent to [place] pharmacy Wound Care: Keep wound(s) clean and dry. Wash daily with soap and water only. Do not use over the counter products (alcohol or peroxide)on the wounds unless instructed by a physician. If wound condition worsens (increased/expanding redness, developing fluid blisters, or worsening pain), either contact your doctor for an urgent re-assessment , or return to the Emergency Department. Return to the Emergency Department for any new or worsening symptoms. Return to the ED, urgent care, or vist a primary care doctor for removal or suture or la Return if fever greater than 100.4 Fahrenheit, increased swelling, increasing pain or worsening symptoms such as increased discharge or spreading redness. Prescriptions: New cephalexin 500 mg capsule 500 mg PO Q6H 5 Days Qty: 20 0RF No Action Citrucel 500 MG tablet 500 mg PO DAILY Qty: 0 hyoscyamine sulfate 0.375 mg tablet extended release 12 hr 0.375 mg PO QID PRN (Reason: Spasms) Label Comments: TK 1 T PO QID PRF SPASM acetaminophen [Tylenol Extra Strength] 500 mg Tablet 1,000 mg PO BID tramadol 50 mg tablet 50 mg PO Q6H PRN (Reason: pain) Qty: 30 0RF ibuprofen 200 mg tablet 400 mg PO Q6H Qty: 60 0RF aspirin 81 mg Tablet,Delayed Release (Dr/Ec) 81 mg PO QPM pantoprazole 40 mg Tablet,Delayed Release (Dr/Ec) 40 mg PO BID zolpidem 10 mg Tablet 5 - 10 mg PO BEDTIME PRN (Reason: Sleep) benazepril 40 mg Tablet 40 mg PO QPM Referrals: Raisa Aguilar MD [Primary Care Provider] - Stand Alone Forms: Patient Portal/API
== END 2022-06-26 11:21 | disposition home or self-care (01) ==
PROVIDERS: Emergency Provider Emergency Medicine; PCP Internal Medicine
DX: Z48.02 Encounter for removal of sutures (principal)
CPT/HCPCS: 99281

== ENCOUNTER 2022-06-29 12:04 | Emergency (ER) | payer MEDICARE, OTHER, SELFPAY ==
[2022-06-29 12:29] VITALS: BP 135/88; PULSE 92; RESP 18; TEMP 36.6; O2SAT 97; BMI 22.3
--- NOTE | 2022-06-30 12:23 | ED.RECABL ---
HPI - Recheck/Abnormal Lab/Rx <Yany Cobos PA-C - Last Filed: 06/30/22 20:58> General Chief Complaint: Recheck/Abnormal Lab/Rx Stated Complaint: sutures out Time Seen by Provider: 06/29/22 12:56 Source: patient Mode of arrival: Ambulatory History of Present Illness HPI narrative: 66-year-old male presents to the ED for suture removal from a laceration to his right forehead. Denies signs of infection, fever, chills. Patient is taking antibiotics for a suspected infection that he was prescribed on 06/26/2022. Endorses that the wound is healing well since then. Related Data Home Medications Medication Instructions Recorded Confirmed methylcellulose (laxative) 500 mg 500 mg PO DAILY ##0 08/11/17 08/14/21 tablet (Citrucel) aspirin 81 mg tablet,delayed 81 mg PO QPM 02/17/18 08/14/21 release benazepril 40 mg tablet 40 mg PO QPM 02/17/18 08/14/21 pantoprazole 40 mg tablet,delayed 40 mg PO BID 02/17/18 08/14/21 release zolpidem 10 mg tablet 5 - 10 mg PO BEDTIME PRN Sleep 02/17/18 08/14/21 hyoscyamine sulfate 0.375 mg 0.375 mg PO QID PRN Spasms 07/24/19 08/14/21 tablet,extended release,12 hr acetaminophen 500 mg tablet 1,000 mg PO BID 01/11/20 08/14/21 (Tylenol Extra Strength) Previous Rx's Medication Instructions Recorded ibuprofen 200 mg tablet 400 mg PO Q6H #60 tabs 07/30/21 tramadol 50 mg tablet 50 mg PO Q6H PRN pain #30 tabs 07/30/21 Allergies Allergy/AdvReac Type Severity Reaction Status Date / Time walnut [WALNUT] Allergy Severe Anaphylaxis Verified 06/29/22 12:29 tadalafil [From CIALIS] Allergy Intermediate Anxiety Verified 08/14/21 09:57 acetaminophen [From Percocet] AdvReac Intermediate Agitated Verified 06/29/22 12:29 oxycodone [From Percocet] AdvReac Intermediate Agitated Verified 06/29/22 12:29 paracetamol AdvReac Intermediate Flushing Uncoded 06/29/22 12:29 Review of Systems <Yany Cobos PA-C - Last Filed: 06/30/22 20:58> Review of Systems ROS Unobtainable: All systems reviewed & are unremarkable except as noted in HPI and below Constitutional Constitutional: Denies chills, Denies fatigue, Denies fever(s), Denies frequent falls, Denies lethargy and Denies weakness Eyes Eyes: Denies change in vision, Denies eye discharge, Denies irritation and Denies loss of vision ENT Ears, Nose, Mouth, and Throat: Denies change in voice, Denies dizziness, Denies neck pain, Denies sore throat and Denies throat swelling Cardiovascular Cardiovascular: Denies chest pain, Denies irregular heart rhythm, Denies lightheadedness, Denies palpitations, Denies dyspnea, Denies dyspnea on exertion and Denies orthopnea Respiratory Respiratory: Denies cough, Denies dyspnea, Denies dyspnea on exertion and Denies wheezing Gastrointestinal Gastrointestinal: Denies abdominal pain, Denies change in bowel habits, Denies diarrhea, Denies nausea and Denies vomiting Genitourinary Genitourinary: Denies hematuria, Denies flank pain, Denies urinary incontinence and Denies urinary urgency Musculoskeletal Musculoskeletal: Denies back pain, Denies muscle weakness, Denies neck pain, Denies numbness and Denies tingling Integumentary/Breasts Skin/Breast: Denies pruritus, Denies erythema, Denies rash and Denies wounds Comments: Sutures to be removed Neurologic Neurologic: Denies behavioral changes, Denies confusion, Denies dizziness, Denies frequent falls, Denies loss of vision, Denies numbness, Denies tingling and Denies weakness Psychiatric Psychiatric: Denies anxiety, Denies behavioral changes, Denies confusion, Denies depression, Denies homicidal ideation and Denies suicidal ideation Endocrine Endocrine: Denies fatigue, Denies flushing and Denies palpitations Hematologic/Lymphatic Hematologic/Lymphatic: Denies easy bruising Allergic/Immunologic Allergic/Immunologic: Denies urticaria, Denies throat swelling and Denies wheezing Patient History <Yany Cobos PA-C - Last Filed: 06/30/22 20:58> Medical History Anxiety Arthritis Depression Diverticulitis GERD (gastroesophageal reflux disease) HLD (hyperlipidemia) HTN (hypertension) Irregular heart beat Kidney disease PURNIMA (obstructive sleep apnea) Surgical History History of appendectomy History of colonoscopy Social History household members: spouse Smoking Status: Never smoker alcohol intake: current Smoking Status: Never smoker alcohol intake frequency: 0-2 drinks per day Alcohol type: wine Substance Use Type: does not use Exam <Yany Cobos PA-C - Last Filed: 06/30/22 20:58> Narrative Exam Narrative: Const General:?cooperative, healthy appearing and comfortable [facility] [place] Head:?normal to inspection Ears:?hearing grossly normal bilaterally Nose:?external nose normal Face and sinus:?normal facial exam and sinuses nontender Mouth:?oral mucosae normal Throat:?posterior oropharynx normal Eyes General:?appearance normal, both eyes and all related structures Neck Neck:?normal visual inspection and no lymphadenopathy noted Resp Effort & Inspection:?normal respiratory effort Auscultation:?clear to auscultation bilaterally Cardio Rate:?regular rate Rhythm:?regular rhythm Integumentary Laceration to right brow has healed well. Sutures were removed with no complications. No signs of infection including erythema, discharge, warmth, swelling, pain. Neuro General:?patient alert, patient awake and patient oriented x3 Initial Vital Signs Initial Vital Signs: Vital Signs Temperature 97.9 F 06/29/22 12:29 Pulse Rate 92 H 06/29/22 12:29 Respiratory Rate 18 06/29/22 12:29 Blood Pressure 135/88 06/29/22 12:29 Pulse Oximetry 97 06/29/22 12:29 Oxygen Delivery Method 06/29/22 12:29 <Karli Marrero DO - Last Filed: 07/01/22 08:05> Initial Vital Signs Initial Vital Signs: Vital Signs Temperature 97.9 F 06/29/22 12:29 Pulse Rate 92 H 06/29/22 12:29 Respiratory Rate 18 06/29/22 12:29 Blood Pressure 135/88 06/29/22 12:29 Pulse Oximetry 97 06/29/22 12:29 Oxygen Delivery Method 06/29/22 12:29 MDM - Recheck/Abnormal Lab/Rx <Yany Cobos PA-C - Last Filed: 06/30/22 20:58> [facility] Narrative Medical decision making narrative: 66-year-old male presents to the ED for suture removal from a laceration to his right forehead. Laceration appears to have healed well. Sutures were removed with no complications. Patient was counseled to use sunscreen to minimize scarring. ED return precautions were discussed with patient. Patient verbalized understanding. Medical history reviewed: Yes Discharge Plan Departure Patient Disposition: Home Clinical Impression: Visit for suture removal Instructions: DI for Suture Removal Activity Restrictions/Additional Instructions: You were evaluated in the ED today for the brow laceration. Your laceration has healed well, your sutures were removed today. Please continue to keep the wound clean and dry, apply sunscreen to minimize scarring. Please complete your course of antibiotics as prescribed. Return to the ED if you note any new signs of infection including redness, swelling, warmth, pain, discharge. Prescriptions: No Action Citrucel 500 MG tablet 500 mg PO DAILY Qty: 0 hyoscyamine sulfate 0.375 mg tablet extended release 12 hr 0.375 mg PO QID PRN (Reason: Spasms) Label Comments: TK 1 T PO QID PRF SPASM acetaminophen [Tylenol Extra Strength] 500 mg Tablet 1,000 mg PO BID tramadol 50 mg tablet 50 mg PO Q6H PRN (Reason: pain) Qty: 30 0RF ibuprofen 200 mg tablet 400 mg PO Q6H Qty: 60 0RF aspirin 81 mg Tablet,Delayed Release (Dr/Ec) 81 mg PO QPM pantoprazole 40 mg Tablet,Delayed Release (Dr/Ec) 40 mg PO BID zolpidem 10 mg Tablet 5 - 10 mg PO BEDTIME PRN (Reason: Sleep) benazepril 40 mg Tablet 40 mg PO QPM Referrals: Raisa Aguilar MD [Primary Care Provider] - Stand Alone Forms: Patient Portal/API <Karli Marrero DO - Last Filed: 07/01/22 08:05> Cosign ED Attending Denaature Attestation: I was immediately available in the department for consultation. Documentation has been reviewed.
== END 2022-06-29 13:17 | disposition home or self-care (01) ==
PROVIDERS: Emergency Provider Student in an Organized Health Care Education/Training Program; PCP Internal Medicine
DX: Z48.02 Encounter for removal of sutures (principal)
CPT/HCPCS: 99282

== ENCOUNTER 2022-11-18 08:29 | Emergency (ER) | payer MEDICARE, OTHER, SELFPAY ==
[2022-11-18] VITALS (15 sets, daily range): BP systolic 110–128; BP diastolic 62–79; PULSE 74–96; RESP 14–28; TEMP 36.5–36.8; O2SAT 73–100
--- NOTE | 2022-11-18 08:36 | DI.RAD.S_ITS ---
PROCEDURE: XR CHEST 1V INDICATIONS: syncope vs. seizure TECHNIQUE: One view of the chest was acquired. COMPARISON: [facility], , XR CHEST 1V, 02/17/2018, 15:15. FINDINGS: Surgical changes and devices: Cardiac monitoring device is again noted. Lungs and pleura: Lungs are clear. No pleural effusions or pneumothorax. Mediastinum: Mediastinal contours appear normal. Heart size is normal. Bones and chest wall: No suspicious bony lesions. Overlying soft tissues appear unremarkable. IMPRESSION: Stable radiographic evaluation of the chest without acute cardiopulmonary abnormalities or focal airspace disease. Dictated by: Craig Call M.D. on 11/18/2022 at 9:17 Approved by: Craig Call M.D. on 11/18/2022 at 9:18
--- NOTE | 2022-11-18 08:37 | ED.GENADULT ---
HPI - General Adult General Chief complaint: Syncope Stated complaint: Syncope Time Seen by Provider: 11/18/22 08:35 History of Present Illness HPI narrative: 67-year-old male nonsmoker without any significant alcohol history, prior syncope versus seizure, episodes of bradycardia, tachycardia, AFib requiring cardioversion presents by EMS for evaluation of 2 episodes this morning. He reports that he went to bed in his normal state of health without any change in medications or diet. He is not been recently ill and denies any recent trauma. He is had no runny nose, sore throat or cough, no chest pain, shortness of breath or palpitations. No nausea, vomiting or diarrhea. He woke up this morning to go use the bathroom and the next thing he knew his was standing over him. He denies feeling any prodromal symptoms. He denies any injury as a consequence. denies any classic seizure type activity and states that he woke up within a minute or 2. Medics arrived to find normal BG, systolic in the 90s. Patient had been sitting up for a few minutes, was on monitor and had a bradycardic episode down to the 50s, with BP in the 100s and had another brief unresponsive episode. He again denied any prodromal symptoms. He has no recollection of either of these events. Related Data Home Medications Medication Instructions Recorded Confirmed methylcellulose (laxative) 500 mg 500 mg PO DAILY ##0 08/11/17 08/14/21 tablet (Citrucel) aspirin 81 mg tablet,delayed 81 mg PO QPM 02/17/18 08/14/21 release benazepril 40 mg tablet 40 mg PO QPM 02/17/18 08/14/21 pantoprazole 40 mg tablet,delayed 40 mg PO BID 02/17/18 08/14/21 release zolpidem 10 mg tablet 5 - 10 mg PO BEDTIME PRN Sleep 02/17/18 08/14/21 hyoscyamine sulfate 0.375 mg 0.375 mg PO QID PRN Spasms 07/24/19 08/14/21 tablet,extended release,12 hr acetaminophen 500 mg tablet 1,000 mg PO BID 01/11/20 08/14/21 (Tylenol Extra Strength) Previous Rx's Medication Instructions Recorded ibuprofen 200 mg tablet 400 mg PO Q6H #60 tabs 07/30/21 tramadol 50 mg tablet 50 mg PO Q6H PRN pain #30 tabs 07/30/21 Allergies Allergy/AdvReac Type Severity Reaction Status Date / Time walnut [WALNUT] Allergy Severe Anaphylaxis Verified 11/18/22 08:54 tadalafil [From CIALIS] Allergy Intermediate Anxiety Verified 11/18/22 08:54 acetaminophen [From Percocet] AdvReac Intermediate Flushing Verified 11/18/22 08:54 oxycodone [From Percocet] AdvReac Intermediate Agitated Verified 11/18/22 08:54 Review of Systems Review of Systems Narrative: GENERAL: Denies chills, fatigue, malaise, fever, sweats. HEENT: Denies sinus pain, ear pain, sore throat, difficulty swallowing, dizziness. RESPIRATORY: Denies dyspnea, cough, wheezing, hemoptysis, sputum. CARDIOVASCULAR: See HPI GASTROINTESTINAL: Denies nausea, vomiting, abdominal pain, diarrhea, constipation, melena. : Denies dysuria, frequency, incontinence, hematuria, urinary retention. MUSCULOSKELETAL: denies weakness, joint pain, or bony pain SKIN: Denies rash, skin lesions, or other NEUROLOGIC: See HPI. PSYCHIATRIC: No concerning psychosocial issues. 12 point review of systems is negative except for those stated above Patient History Medical History Anxiety Arthritis Depression Diverticulitis GERD (gastroesophageal reflux disease) HLD (hyperlipidemia) HTN (hypertension) Irregular heart beat Kidney disease PURNIMA (obstructive sleep apnea) Surgical History History of appendectomy History of colonoscopy Social History household members: spouse Smoking Status: Never smoker alcohol intake: current Smoking Status: Never smoker alcohol intake frequency: 0-2 drinks per day Alcohol type: wine Substance Use Type: does not use Exam Narrative Exam Narrative: GENERAL: [67] year old patient appears stated age. Well-developed patient, in mild distress. GCS 15, resting comfortably HEAD: Atraumatic. Normocephalic. EYES: Pupils equal round and reactive. Extraocular motions intact. No scleral icterus. No injection or drainage. ENT: Nose without bleeding, purulent drainage. Throat without erythema, tonsillar hypertrophy or exudate. Airway patent. NECK: Trachea midline. Non tender, no midline tenderness, no meningeal signs CARDIOVASCULAR: Regular rate and rhythm without murmurs, gallops, or rubs. RESPIRATORY: Clear to auscultation. Breath sounds equal bilaterally. No wheezes, rales, or rhonchi. GASTROINTESTINAL: Abdomen soft, non-tender, nondistended. EXTREMITIES: No edema or joint tenderness. BACK: Nontender without deformity or crepitance. No flank tenderness. NEURO: AOx3. SKIN: No rash or erythema of visible areas NIH Stroke Scale 1a. LOC: Patient is alert and keenly responsive (0) 1b. LOC Questions: Patient answers both LOC questions accurately (0) 1c. LOC Commands: Patient performs both tasks correctly (0) 2. Best Gaze: Normal (0) 3. Visual: No visual loss (0) 4. Facial palsy: Normal symmetrical movements (0) 5. Motor arm: No drift (0) 6. Motor leg: No drift (0) 7. Limb ataxia: Absent (0) 8. Sensory: Normal (0) 9. Best language: No aphasia; normal (0) 10. Dysarthria: Normal (0) 11. Extinction and inattention: No abnormality (0) NIHSS: 0 Initial Vital Signs Initial Vital Signs: Vital Signs Pulse Rate 74 11/18/22 08:44 Respiratory Rate 17 11/18/22 08:44 Pulse Oximetry 97 11/18/22 08:44 Course Orders Ordered: Discontinued Medications Sodium Chloride (Normal Saline 0.9%) 1,000 mls @ 1,000 mls/hr IV BOLUS ONE Stop: 11/18/22 09:34 Last Infusion: 11/18/22 09:50 Dose: 0 mls/hr Documented By: Admin: 11/18/22 09:09 Dose: 1,000 mls/hr Documented By: DEANN Lactated Ringer's (Lactated Ringers) 1,000 mls @ 1,000 mls/hr IV BOLUS ONE Stop: 11/18/22 11:08 Last Infusion: 11/18/22 11:42 Dose: 0 mls/hr Documented By: Admin: 11/18/22 10:20 Dose: 1,000 mls/hr Documented By: DEANN Magnesium Sulfate (Magnesium Sulfate) 2 gm in 50 mls @ 25 mls/hr IV NOW ONE Stop: 11/18/22 12:08 Last Infusion: 11/18/22 11:41 Dose: 0 mls/hr Documented By: DEANN Co-signed By: INEZ Admin: 11/18/22 10:20 Dose: 25 mls/hr Documented By: DEANN Co-signed By: ABEL Medical Decision Making Lab Data 11/18/22 08:34 11/18/22 08:34 Labs: Lab Results 11/18/22 11/18/22 11/18/22 Range/Units 08:34 08:34 08:34 WBC 14.1 H (4.5-11.0) X10^3/uL RBC 4.26 L (4.5-5.9) X10^6/uL Hgb 13.6 (13.5-17.5) g/dL Hct 40.0 L (41-53) % MCV 93.9 (80-100) fL MCH 31.9 (26-34) PG MCHC 33.9 (30-36) % RDW 13.0 (11.6-14.8) % Plt Count 360 (150-400) X10^3/uL Neut % (Auto) 70.1 (50-75) % Lymph % (Auto) 18.7 L (25-40) % [place] % (Auto) 8.3 (3-14) % Eos % (Auto) 2.4 (2-4) % Baso % (Auto) 0.5 (0-2) % Neut # (Auto) 9900 H (8592-9270) /uL Lymph # (Auto) 2600 (3582-8708) /uL [place] # (Auto) 1200 H (0-900) /uL Eos # (Auto) 300 (0-450) /uL Baso # (Auto) 100 (0-100) /uL Sodium 130 L (137-145) mmol/L Potassium 4.1 (3.4-5.1) mmol/L Chloride 96 L (98-107) mmol/L Carbon Dioxide 21 L (22-32) mmol/L BUN 14 (9-20) mg/dL Creatinine 1.02 (0.66-1.25) mg/dL Estimated GFR > 60 (>60) mL/min BUN/Creatinine Ratio 13.7 (6-22) Glucose 102 (80-110) mg/dL Lactate 2.1 (0.7-2.1) mmol/L Calcium 8.9 (8.4-10.2) mg/dL Magnesium 1.3 L (1.6-2.3) mg/dL Total Bilirubin 0.5 (0.2-1.3) mg/dL AST 26 (17-59) IU/L ALT 18 (<50) IU/L Alkaline Phosphatase 50 (38-126) U/L Total Creatine Kinase 73 (55-170) U/L CK-MB (CK-2) TNP CK-MB (CK-2) Rel Index TNP Troponin I < 0.012 (0.01-0.034) ng/mL Total Protein 6.8 (6.3-8.2) g/dL Albumin 4.0 (3.5-5.0) g/dL Globulin 2.8 (1.7-4.1) g/dL Albumin/Globulin Ratio 1.4 (1.0-2.8) Lipase 140 (23-300) U/L Urine RBC (0-5/HPF) Urine WBC (0-5/HPF) Ur Squamous Epith Cells (0-5/HPF) Urine Bacteria (None) Hyaline Casts (None) Ur Culture Indicated? U Opiates 300ng/mL cut (Negative) Ur Oxycodone Screen (Negative) Urine Methadone Screen (Negative) Ur Barbiturates Screen (Negative) U Tricyclic Antidepress (Negative) Ur Phencyclidine Scrn (Negative) Ur Amphetamines Screen (Negative) U Methamphetamines Scrn (Negative) Ur MDMA Scrn (Ecstasy) (Negative) U Benzodiazepines Scrn (Negative) Urine Cocaine Screen (Negative) U Marijuana (THC) Screen (Negative) Ethyl Alcohol 52 H ( - 10) mg/dL 11/18/22 11/18/22 Range/Units 11:35 11:35 WBC (4.5-11.0) X10^3/uL RBC (4.5-5.9) X10^6/uL Hgb (13.5-17.5) g/dL Hct (41-53) % MCV (80-100) fL MCH (26-34) PG MCHC (30-36) % RDW (11.6-14.8) % Plt Count (150-400) X10^3/uL Neut % (Auto) (50-75) % Lymph % (Auto) (25-40) % [place] % (Auto) (3-14) % Eos % (Auto) (2-4) % Baso % (Auto) (0-2) % Neut # (Auto) (5295-7465) /uL Lymph # (Auto) (4234-7079) /uL [place] # (Auto) (0-900) /uL Eos # (Auto) (0-450) /uL Baso # (Auto) (0-100) /uL Sodium (137-145) mmol/L Potassium (3.4-5.1) mmol/L Chloride (98-107) mmol/L Carbon Dioxide (22-32) mmol/L BUN (9-20) mg/dL Creatinine (0.66-1.25) mg/dL Estimated GFR (>60) mL/min BUN/Creatinine Ratio (6-22) Glucose (80-110) mg/dL Lactate (0.7-2.1) mmol/L Calcium (8.4-10.2) mg/dL Magnesium (1.6-2.3) mg/dL Total Bilirubin (0.2-1.3) mg/dL AST (17-59) IU/L ALT (<50) IU/L Alkaline Phosphatase (38-126) U/L Total Creatine Kinase (55-170) U/L CK-MB (CK-2) CK-MB (CK-2) Rel Index Troponin I (0.01-0.034) ng/mL Total Protein (6.3-8.2) g/dL Albumin (3.5-5.0) g/dL Globulin (1.7-4.1) g/dL Albumin/Globulin Ratio (1.0-2.8) Lipase (23-300) U/L Urine RBC 1-5/hpf (0-5/HPF) Urine WBC 0-1/hpf (0-5/HPF) Ur Squamous Epith Cells 0-1 /hpf (0-5/HPF) Urine Bacteria None seen (None) Hyaline Casts 1-5/lpf (None) Ur Culture Indicated? Cult not indicated U Opiates 300ng/mL cut Negative (Negative) Ur Oxycodone Screen Negative (Negative) Urine Methadone Screen Negative (Negative) Ur Barbiturates Screen Negative (Negative) U Tricyclic Antidepress Negative (Negative) Ur Phencyclidine Scrn Negative (Negative) Ur Amphetamines Screen Negative (Negative) U Methamphetamines Scrn Negative (Negative) Ur MDMA Scrn (Ecstasy) Negative (Negative) U Benzodiazepines Scrn Negative (Negative) Urine Cocaine Screen Negative (Negative) U Marijuana (THC) Screen Negative (Negative) Ethyl Alcohol ( - 10) mg/dL Urine Dip Bedside Urine Glucose Negative Bedside Urine Bilirubin - Negative Bedside Urine Ketone +/- 5 Urine Specific [place] 1.015 Bedside Urine Occult Blood +/- Bedside Urine pH 6.0 Bedside Urine Protein + 30 Bedside Urine Urobilinogen +/- 1mg Bedside Urine Nitrite - Negative Bedside Urine Leukocytes - Negative Esterase Point of care testing: Urine Dip Bedside Urine Glucose Negative Bedside Urine Bilirubin - Negative Bedside Urine Ketone +/- 5 Urine Specific [place] 1.015 Bedside Urine Occult Blood +/- Bedside Urine pH 6.0 Bedside Urine Protein + 30 Bedside Urine Urobilinogen +/- 1mg Bedside Urine Nitrite - Negative Bedside Urine Leukocytes - Negative Esterase MDM Narrative Medical decision making narrative: CC: 67-year-old male with seizure versus syncope versus other Complicating co-morbidities: Age, history of tachycardia, bradycardia, seizure Data collected from: Patient Medical records reviewed: Prior notes reviewed in our EMR Differential considered, but not limited to: Seizure versus syncope versus other Exam documented above, pertinent findings include: Heart rate regular, lungs clear, breathing nonlabored, no focal neurologic findings Lab Test results independently reviewed as above. Pertinent findings:Mild leukocytosis Independently reviewed EKG as above Imaging studies independently reviewed: CT head and CXR without significant acute findings Treatments:saline, magnesium Re-evaluations: Patient with significant improvement after fluids Discussion: Patient with reassuring history and physical exam with syncopal/near syncopal event after changing position. Labs are very reassuring, significant improvement after fluids and magnesium replacement. No longer orthostatic, ambulatory in the department. Disposition: see below, along with detailed discharge instructions that have been reviewed with patient as well as indications for ED re-evaluation and additional outpatient follow up Discharge Plan Departure Patient Disposition: Home Clinical Impression: Orthostatic syncope Instructions: DI for Syncope in Adults (Fainting) Activity Restrictions/Additional Instructions: *You have been diagnosed with [ fainting, likely related to dehydration. Thankfully your history and physical exam as well as labs, chest x-ray, and CT scan are reassuring here] *What to do: *Please continue to take your regular medications as directed. [ ] New medication prescriptions sent to your pharmacy: [ ] [ ] New medication written as a paper prescription [x ] No new medications given *Please follow up with your primary care provider in 2-3 days, call for an appointment. Let them know you were seen in the Emergency Department and that we ask that you be seen in follow up. We will electronically transmit a record of today's note if your PCP is in our system *Return to Emergency Department if you should have any new, worsening or concerning symptoms, such as [fever greater than 101 F, shaking chills, worsening pain, persistent vomiting or other bothersome symptoms] Prescriptions: No Action Citrucel 500 MG tablet 500 mg PO DAILY Qty: 0 hyoscyamine sulfate 0.375 mg tablet extended release 12 hr 0.375 mg PO QID PRN (Reason: Spasms) Patient Comments: TK 1 T PO QID PRF SPASM acetaminophen [Tylenol Extra Strength] 500 mg Tablet 1,000 mg PO BID tramadol 50 mg tablet 50 mg PO Q6H PRN (Reason: pain) Qty: 30 0RF ibuprofen 200 mg tablet 400 mg PO Q6H Qty: 60 0RF aspirin 81 mg Tablet,Delayed Release (Dr/Ec) 81 mg PO QPM pantoprazole 40 mg Tablet,Delayed Release (Dr/Ec) 40 mg PO BID zolpidem 10 mg Tablet 5 - 10 mg PO BEDTIME PRN (Reason: Sleep) benazepril 40 mg Tablet 40 mg PO QPM Referrals: Raisa Aguilar MD [Primary Care Provider] - Stand Alone Forms: Patient Portal/API
[2022-11-18 08:43] LABS: Add Manual Diff / Slide Review NO; Basophils Absolute Auto 100 /uL (0-100); Basophils Percent Auto 0.5 % (0-2); Eosinophils Absolute Auto 300 /uL (0-450); Eosinophils Percent Auto 2.4 % (2-4); Hemoglobin 13.6 g/dL (13.5-17.5); Lymphocytes Absolute Auto 2600 /uL (1100-4500); Lymphocytes Percent Auto 18.7 % (25-40); Mean Corpuscular HGB Conc 33.9 % (30-36); Mean Corpuscular Hemoglobin 31.9 PG (26-34); Mean Corpuscular Volume 93.9 fL (80-100); Monocytes Absolute Auto 1200 /uL (0-900); Monocytes Percent Auto 8.3 % (3-14); Neutrophils Absolute Auto 9900 /uL (1500-7000); Neutrophils Percent Auto 70.1 % (50-75); Platelet Count 360 X10^3/uL (150-400); Red Blood Cell Count 4.26 X10^6/uL (4.5-5.9); White Blood Cell Count 14.1 X10^3/uL (4.5-11.0)
[2022-11-18 08:53] LABS: Lactate (Lactic Acid) 2.1 mmol/L (0.7-2.1)
--- NOTE | 2022-11-18 08:53 | DI.CT.S_ITS ---
PROCEDURE: CT HEAD/BRAIN WO CON INDICATIONS: possible seizure, altered TECHNIQUE: Noncontrast 4.5 mm thick angled axial sections acquired from the foramen magnum to the vertex, with coronal and sagittal reformats. For radiation dose reduction, the following was used: automated exposure control, adjustment of mA and/or kV according to patient size. COMPARISON: None. FINDINGS: Image quality: Excellent. CSF spaces: Basal cisterns are patent. No extra-axial fluid collections. Ventricles are normal in size and shape. Brain: No midline shift. No intracranial masses or hemorrhage. Carrasquillo-white matter interface is normal. Skull and face: Calvarium and visualized facial bones are intact, without suspicious lesions. Sinuses: Scattered ethmoid sinus mucosal thickening. Minimal bilateral maxillary sinus mucosal thickening. Remainder of the paranasal sinuses appear clear. Mastoid air cells are well-aerated. IMPRESSION: CT head without acute intracranial abnormalities. No mass or mass effect visualized. Minimal bilateral maxillary and scattered ethmoid sinus disease. Dictated by: Craig Call M.D. on 11/18/2022 at 9:14 Approved by: Craig Call M.D. on 11/18/2022 at 9:15
[2022-11-18 08:55] LABS: Alanine Aminotransferase 18 IU/L (<50); Albumin Globulin Ratio 1.4 (1.0-2.8); Alkaline Phosphatase 50 U/L (38-126); Aspartate Aminotransferase 26 IU/L (17-59); BUN Creatinine Ratio 13.7 (6-22); Bilirubin Total 0.5 mg/dL (0.2-1.3); Blood Urea Nitrogen 14 mg/dL (9-20); Calcium 8.9 mg/dL (8.4-10.2); Carbon Dioxide 21 mmol/L (22-32); Chloride 96 mmol/L (98-107); Creatine Kinase 73 U/L (55-170); Estimated Glomerular Filt Rate > 60 mL/min (>60); Ethanol (ETOH) 52 mg/dL; Globulin 2.8 g/dL (1.7-4.1); Glucose 102 mg/dL (80-110); HEMOLYSIS 33 (0-50); Lipase 140 U/L (23-300); Magnesium 1.3 mg/dL (1.6-2.3); Potassium 4.1 mmol/L (3.4-5.1); Sodium 130 mmol/L (137-145); Total Protein 6.8 g/dL (6.3-8.2)
[2022-11-18 09:05] LABS: Troponin I < 0.012 ng/mL (0.01-0.034)
[2022-11-18] MEDS: SODIUM CHLORIDE 0.9% 1,000 ML 1000 ML IV (09:09)
--- NOTE | 2022-11-18 09:50 | PC.NURSE ---
Assisted pt to stand but unable to provide urine specimen at this time.
[2022-11-18] MEDS: LACTATED RINGERS 1,000 ML 1000 ML IV (10:20)
[2022-11-18] MEDS: MAGNESIUM SULFATE 2 GM/50 ML PIGGYBACK IV (10:20)
[2022-11-18 10:38] LABS: Reflexed Lactate in 2 Hours Y
[2022-11-18 12:05] LABS: UR Morphine/Opiate cutoff 300 Negative (Negative); Ur Creatinine Normal (Normal); Ur Specific Gravity Normal (Normal); Urine Amphetamines Negative (Negative); Urine Barbiturates Negative (Negative); Urine Benzodiazepines Negative (Negative); Urine Cocaine Negative (Negative); Urine MDMA Negative (Negative); Urine Methadone Negative (Negative); Urine Methamphetamines Negative (Negative); Urine Oxycodone Negative (Negative); Urine Phencyclidine Negative (Negative); Urine Tetrahydrocannabinol Negative (Negative); Urine Tricyclic Antidepressant Negative (Negative); Urine pH Normal (Normal)
[2022-11-18 12:09] LABS: Bacteria Urine None Seen; Culture Indicated Urine Cult Not Indicated; Hyaline Casts Urine 1-5/LPF; RBC Urine 1-5/HPF (0-5/HPF); Squamous Epithelial Cell Urine 0-1 /HPF (0-5/HPF); WBC Urine 0-1/HPF (0-5/HPF)
--- NOTE | 2022-11-18 12:47 | PC.NURSE ---
Pt ambulated independently with sba without feeling lightheaded, HR 100, denies SOB, CP.
== END 2022-11-18 12:54 | disposition home or self-care (01) ==
PROVIDERS: Emergency Provider Emergency Medicine; PCP Internal Medicine
DX: I95.1 Orthostatic hypotension (principal)
CPT/HCPCS: 36415; 51798; 70450; 71045; 80053; 80305; 80320; 81003; 81015; 82550; 83605; 83690; 83735; 84484; 85025; 93005; 99284; J3475

== ENCOUNTER → 2022-12-08 12:06 | Outpatient (CLI) | payer MEDICARE, OTHER, SELFPAY ==
--- NOTE | 2022-12-08 | DI.ECHO.S_ITS ---
[place]---------+ [facility] +---------+ : : [address] : : : : [phone] : : : : Phone: [phone]+ Echocardiogram Report + + :Name: SAMSON HERNANDEZ Study Date: 12/08/2022 Height: 71 in : :[facility] ReadingLocation: Weight: 163 lb : : Gender: Male BSA: 1.9 m2 : :: 1955 Age: 67 yrs BP: 140/93 mmHg: :Reason For Study: SYCOPE AND COLLAPSE : :Ordering Physician: DAVID, : :LEONEL Performed By: Filomena Rodriguez : :Referring: LEONEL HERNANDEZ : + + Interpretation Summary The ejection fraction is estimated to be 50-55%. There is hypokinesis of the distal lateral and inferolateral padron. Diastolic parameters suggest probable normal left ventricular diastolic function and normal filling pressures. The right ventricle is normal in size and function. No significant valvular abnormalities. Pulmonary artery pressures cannot be estimated because of the lack of a measurable TR jet velocity. Procedure: A two-dimensional transthoracic echocardiogram with color flow and Doppler was performed. The study quality was technically adequate. There is no prior echocardiogram noted for this patient. The patient was in sinus rhythm with heart rates between 72-81 bpm during the exam. Left Ventricle: The left ventricle is normal in size and wall thickness. The ejection fraction is estimated to be 50-55%. There is hypokinesis of the distal lateral and inferolateral padron. Diastolic parameters suggest probable normal left ventricular diastolic function and normal filling pressures. Right Ventricle: The right ventricle is normal in size and function. Atria: The left atrial size is normal. Right atrial size is normal. There is no Doppler evidence for an interatrial shunt. Mitral Valve: The mitral valve is normal in structure and function. There is trace mitral regurgitation. Aortic Valve: The aortic valve is trileaflet. The aortic valve opens well. There is no aortic valve stenosis. No aortic regurgitation is present. Tricuspid Valve: The tricuspid valve is normal in structure and function. There is trace tricuspid regurgitation. Pulmonary artery pressures cannot be estimated because of the lack of a measurable TR jet velocity. Pulmonic Valve: The pulmonic valve is not well seen, but is grossly normal. There is no pulmonic valvular regurgitation. Great Vessels: The aortic root is normal size. The dimensions of the ascending aorta are normal. The IVC is of normal diameter and collapses greater than 50% with a sniff. This suggests a low right atrial pressure of 3 mm Hg. Pericardium/ Pleura There is no pericardial effusion. There is no pleural effusion. MMode/2D Measurements & Calculations LVIDd: 5.4 cm LVOT diam: 2.2 cm LVIDs: 3.4 cm Ao root diam: 3.6 cm FS: 36.8 % asc Aorta Diam: 3.6 cm EPSS: 1.0 cm Ao Arch Diam (Prox Trans): 2.6 cm IVSd: 0.84 cm LVPWd: 0.64 cm LV stock. diameter/BSA (cm/m^2): 2.8 LV sys. diameter/BSA (cm/m^2): 1.8 LA A2 area: 17.1 cm2 RA long axis: 4.6 cm LA A4 area: 14.6 cm2 RA area: 11.9 cm2 LA length (vol): 4.7 cm RA vol: 26.1 ml LA vol: 45.1 ml RA : 13.5 ml/m2 LA vol index: 23.3 ml/m2 IVC diam: 1.3 cm RVD1 (basal): 3.6 cm RVD2 (mid): 3.2 cm TAPSE: 2.0 cm Doppler Measurements & Calculations Ao V2 max: 121.9 cm/sec LVOT Max Narciso: 91.2 cm/sec Ao V2 mean: 88.6 cm/sec LV V1 max P.3 mmHg Ao max P.9 mmHg LV V1 VTI: 18.3 cm Ao mean P.4 mmHg NAVARRO(I,D): 3.1 cm2 Ao V2 VTI: 22.9 cm NAVARRO(V,D): 2.9 cm2 sev ratio: 0.80 NAVARRO indexed to BSA (cm^2/m^2): 1.6 MV E max narciso: 52.2 cm/sec PA V2 max: 96.1 cm/sec MV A max narciso: 65.2 cm/sec PA V2 mean: 61.0 cm/sec MV E/A: 0.80 PA mean P.8 mmHg Med Peak E' Narciso: 6.1 cm/sec PA pr(Accel): 44.7 mmHg E/E' med: 8.5 Lat Peak E' Narciso: 9.2 cm/sec E/E' lat: 5.7 E/e' average: 7.1 MV dec time: 0.34 sec Pulm A Revs Narciso: 28.3 cm/sec SV(LVOT): 71.6 ml Pulm A Revs Dur: 0.14 sec Reading Physician:02:27 PM
== END ==
PROVIDERS: PCP Internal Medicine; Referring Provider Internal Medicine; Visit Provider Internal Medicine
DX: R55 Syncope and collapse (principal)
CPT/HCPCS: 93306

== ENCOUNTER → 2022-12-16 15:27 | Outpatient (CLI) | payer MEDICARE, OTHER, SELFPAY ==
--- NOTE | 2022-12-16 15:29 | DI.MRI.S_ITS ---
PROCEDURE: MR ANGIO ABDOMEN WO/W CON INDICATIONS: Atrophy of kidney (terminal) TECHNIQUE: Precontrast axial and coronal TruFISP through the abdomen. Dynamic coronal MRA using Care Bolus timing during the administration of contrast. Post-contrast axial VIBE through the kidneys. 3-dimensional maximum intensity projection (MIP) reformats constructed. COMPARISON: [facility], CT, ANGIOGRAPHY ABDOMEN AND PELVIS, 08/11/2017, 19:15. FINDINGS: Image quality: Excellent. Renal arteries: Both renal arteries are patent. The left kidney demonstrates innumerable cortical cysts with significantly decreased enhancing renal parenchyma compared to the right. This appearance is similar to a prior CT of the abdomen and pelvis on 08/11/2017. Abdominal aorta: Aorta is normal in caliber, and is patent. Mesenteric arteries: Celiac trunk, superior and inferior mesenteric arteries are widely patent. Extravascular soft tissues: The liver demonstrates multiple cysts measuring up to 1.2 cm. Small ascites is noted. The right kidney has a single cyst measuring 2.6 cm. The left kidney has innumerable cortical cysts of varying signal intensity. These do not demonstrate post gadolinium enhancement. The remaining solid organs appear normal in size on limited pre-contrast images. No retroperitoneal or mesenteric adenopathy by size criteria. Bowel loops are normal in caliber. No free fluid. No ventral hernias. Bones: Marrow demonstrates normal overall signal. IMPRESSION: 1. The left kidney demonstrates multiple simple cortical cysts replacing at least 80 percent of the renal parenchyma. The right kidney has a single 2.6 centimeter cyst. The overall appearance is unchanged compared to 08/11/2017. The left kidney has the appearance of polycystic kidney disease, however the right kidney is mostly uninvolved. 2. Multiple simple hepatic cysts. 3. Patent bilateral renal arteries. Dictated by: Darryl Iqbal M.D. on 12/17/2022 at 8:24 Approved by: Darryl Iqbal M.D. on 12/17/2022 at 8:36
== END ==
PROVIDERS: PCP Internal Medicine; Referring Provider Student in an Organized Health Care Education/Training Program; Visit Provider Student in an Organized Health Care Education/Training Program
DX: Q61.3 Polycystic kidney, unspecified (principal); N26.1 Atrophy of kidney (terminal); K76.89 Other specified diseases of liver
CPT/HCPCS: C8902; A9579

== ENCOUNTER → 2023-01-04 08:53 | Outpatient (CLI) | payer MEDICARE, OTHER, SELFPAY ==
--- NOTE | 2023-01-04 | DI.ECHO.S_ITS ---
[place] +---------+ [facility] +---------+ : : [address] : [address] : : : : [phone] : : : : Phone: [phone]+ Echocardiogram Report + + :Name: SAMSON HERNANDEZ Study Date: 01/04/2023 Height: 71 in : :[facility] ReadingLocation: Weight: 160 lb: : Gender: Male BSA: 1.9 m2 : :: 1955 Age: 67 yrs : :Reason For Study: Orthostatic Hypotension, R/O PFO : :Ordering Physician: Latonya, : :Eva Performed By: Kelly Mathew : :Referring: Eva Hanks : + + Interpretation Summary Normal left ventricle size with ejection fraction 50-55%. Injection of contrast documented an interatrial shunt. Procedure: A two-dimensional transthoracic echocardiogram with color flow and Doppler was performed in limited views only. The study quality was technically adequate. Comparison is made with the echocardiogram of 12/08/2022. A saline contrast injection was performed to assess for cardiac shunting. The patient was in normal sinus rhythm during the exam. Left Ventricle: The left ventricle is normal in size. The left ventricle is mildly dilated. The ejection fraction is estimated to be 50-55%. Atria: Injection of contrast documented an interatrial shunt. Mitral Valve: The mitral valve leaflets appear mildly thickened, but open well. There is trace mitral regurgitation. Aortic Valve: The aortic valve is trileaflet. The aortic valve opens well. Tricuspid Valve: The tricuspid valve is normal. There is trace tricuspid regurgitation. Pulmonary artery pressures cannot be estimated because of the lack of a measurable TR jet velocity. Great Vessels: The IVC is of normal diameter and collapses greater than 50% with a sniff. This suggests a low right atrial pressure of 3 mm Hg. Pericardium/ Pleura There is no pericardial effusion. There is no pleural effusion. MMode/2D Measurements & Calculations LVLs ap4: 5.4 cm LVLd ap2: 6.7 cm LVLs ap2: 6.1 cm Electronically signed by: Shira Jeff on Reading Physician:01/04/2023 04:40 PM
--- NOTE | 2023-01-04 | DI.US.S_ITS ---
PROCEDURE: US CAROTID DOPPLER BI INDICATIONS: Orthostatic hypotension TECHNIQUE: Color and pulse Doppler interrogation was performed of both carotid systems, with image documentation and velocity measurements. COMPARISON: None. FINDINGS: Stenosis calculations are based on SRU (S[employer] in Ul[employer]) criteria. Right side: Brachial blood pressure: 119/76 mm Hg. Common carotid artery peak systolic velocity: 116 cm/sec. Internal carotid artery peak systolic velocity: 103 cm/sec. Internal carotid artery end diastolic velocity: 42 cm/sec. External carotid artery peak systolic velocity: 80 cm/sec. ICA/CCA peak systolic ratio: 0.9 . [place] scale imaging description: Trace atherosclerotic plaque Percent internal carotid artery stenosis: 0 . Vertebral artery: Flow direction is antegrade. Left side: Brachial blood pressure: 120/79 mm Hg. Common carotid artery peak systolic velocity: 124 cm/sec. Internal carotid artery peak systolic velocity: 106 cm/sec. Internal carotid artery end diastolic velocity: 48 cm/sec. External carotid artery peak systolic velocity: 93 cm/sec. ICA/CCA peak systolic ratio: 0.9 . [place] scale imaging description: Unremarkable Percent internal carotid artery stenosis: None . Vertebral artery: Flow direction is antegrade. IMPRESSION: Trace atherosclerotic plaque in the right without evidence of proximal ICA stenosis bilaterally Approved by: Glen Stoll M.D. on 01/04/2023 at 17:04
== END ==
PROVIDERS: PCP Internal Medicine; Referring Provider Nurse Practitioner; Visit Provider Nurse Practitioner
DX: I95.1 Orthostatic hypotension (principal)
CPT/HCPCS: 93307; 93880

== ENCOUNTER → 2024-02-24 12:01 | Outpatient (CLI) | payer MEDICARE, OTHER, SELFPAY ==
--- NOTE | 2024-02-24 12:02 | DI.US.S_ITS ---
PROCEDURE: US RENAL COMPLETE INDICATIONS: KIDNEY CYSTS TECHNIQUE: Real-time scanning was performed of the kidneys and bladder, with image documentation. COMPARISON: None. FINDINGS: Kidneys: Kidneys are normal in size. Right kidney measures 12.5 cm long; left kidney measures 12 cm long. Right renal cortical thickness is 1.3 cm; left renal cortical thickness is 0.8 cm. Renal cortical echotexture is normal. No hydronephrosis or nephrolithiasis. No suspicious solid mass lesions. Right upper pole anechoic simple cyst measuring 2.7 x 2.1 x 2.9 cm. Left kidney demonstrates multiple anechoic simple cysts. Additional complex left interpolar anechoic cyst with septations measuring 5.7 x 2.4 x 6.1 cm. Bladder: Pre-void bladder volume is 244 mL. Post-void residual is 139 mL. Pre-void images demonstrate no intraluminal masses or stones. On pre-void images, no ureteral jets are noted with color Doppler interrogation. (Of note, ureteral jets may not be detectable in up to 25% of cases due to insufficient differences in specific gravity between ureteral and bladder urine). Miscellaneous: No free pelvic fluid. IMPRESSION: Bilateral renal cysts. Left kidney demonstrates complex interpolar cystic lesion with septations measuring 5.7 x 2.4 x 6.1 cm. Cine clip was not obtained and comparison imaging is not available. Recommend obtaining comparisons to evaluate for interval change. If unavailable, consider cross-sectional imaging for further characterization. Dictated by: Leny Mahajan M.D. on 02/24/2024 at 17:19 Approved by: Leny Mahajan M.D. on 02/24/2024 at 17:23
== END ==
PROVIDERS: PCP Internal Medicine; Referring Provider Physician Assistant; Visit Provider Physician Assistant
DX: N28.1 Cyst of kidney, acquired (principal)
CPT/HCPCS: 76770

== ENCOUNTER → 2024-04-14 10:05 | Outpatient (CLI) | payer MEDICARE, OTHER, SELFPAY ==
--- NOTE | 2024-04-14 10:08 | DI.CT.S_ITS ---
PROCEDURE: CT ABDOMEN RENAL PROTOCOL INDICATIONS: RENAL LESION TECHNIQUE: Optional 5 mm thick noncontrast images acquired from the diaphragm to the iliac crests. After the administration of intravenous contrast, 5 mm thick images again acquired from the diaphragm to the iliac crests in the arterial and urographic phases. 5 mm thick coronal and sagittal reformats were then acquired. For radiation dose reduction, the following was used: automated exposure control, adjustment of mA and/or kV according to patient size. COMPARISON: [facility], MR, MR ANGIO ABDOMEN WO/W CON, 12/16/2022, 16:11. [facility], US, US RENAL COMPLETE, 02/24/2024, 12:30. FINDINGS: Image quality: Diagnostic. Kidneys and Ureters: No hydronephrosis. No definite solid mass. The pre contrast imaging shows numerous left-sided renal cortical cysts, none of which show definite soft tissue components or enhancement. Some several show small degrees of peripheral calcification. There is an exophytic posterior right mid kidney cortical cyst that is high in radiodensity on pre contrast imaging but also shows no contrast enhancement. No urothelial mass is found. OTHER: Lower chest: Unremarkable. Liver: No solid mass. Scattered small hepatic cysts are noted. Gallbladder: No radiopaque gallstones or wall thickening. Biliary ducts: No biliary dilation. Pancreas: No ductal dilation. Spleen: Size is within normal limits. Adrenal Glands: No adrenal nodules. Stomach and Bowel: Normal colonic caliber, without significant wall thickening. Peritoneum: No abnormal intraperitoneal fluid. No free air. Ventral Wall: No hernia. Abdominal Nodes: No retroperitoneal or mesenteric adenopathy by size criteria. Vessels: Aorta and inferior vena cava are normal in size. Bones: No aggressive osseous abnormality. IMPRESSION: CT scanning shows multiple left-sided renal cortical cysts and a single right renal cortical cyst, and multiple of these show increased internal radiodensity on pre contrast imaging but none show evidence of enhancing soft tissue component. Normal contrast excretion into the collecting system of each kidney and no urothelial mass lesion is suspected. No definite follow-up is recommended. Dictated by: Jose Angel Kumar M.D. on 04/14/2024 at 15:20 Approved by: Jose Angel Kumar M.D. on 04/14/2024 at 15:29
[2024-04-14 11:43] LABS: Estimated Glomerular Filt Rate > 60 mL/min (>60)
== END ==
PROVIDERS: Radiology Diagnostic Radiology; PCP Internal Medicine; Referring Provider Physician Assistant; Visit Provider Physician Assistant
DX: N28.9 Disorder of kidney and ureter, unspecified (principal); N28.1 Cyst of kidney, acquired; K76.89 Other specified diseases of liver
CPT/HCPCS: 36415; 74170; 82565; Q9967

== ENCOUNTER → 2024-09-19 10:40 | Outpatient (CLI) | payer MEDICARE, OTHER, SELFPAY ==
--- NOTE | 2024-09-19 10:44 | DI.RAD.S_ITS ---
PROCEDURE: XR LUMBAR SPINE 6V W BENDING INDICATIONS: BACK PAIN TECHNIQUE: 7 views of the lumbar spine acquired, including oblique views, flexion and extension views. COMPARISON: None. FINDINGS: Bones: 5 nonrib-bearing vertebrae are present. There is trace, approximately 2-3 millimeters of L 2-L3 and L3-L4 retrolisthesis. There is trace, approximately 2 millimeters of L4-L5 anterolisthesis. There is mild convex right thoracolumbar spine scoliosis. No vertebral body compression fractures. No suspicious bony lesions. Mild degenerative disc changes throughout the lumbar spine. Moderate L4-L5 and L5-S1 facet arthropathy. Mild L2-L3 and L3-L4 facet arthropathy. No pars defects. Soft tissues: Overlying bowel gas pattern is normal. No suspicious soft tissue calcifications. Flexion/extension: There is reduced range of motion, with preserved vertebral body alignment. IMPRESSION: Multilevel degenerative disc disease. Multilevel facet arthropathy. No fracture. No acute osseous lesion. If symptoms and/or clinical suspicion for pathology persists, evaluation with MRI should be considered for further assessment. Dictated by: Sydney Bedolla MD, PhD on 09/19/2024 at 12:23 Approved by: Sydney Bedolla MD, PhD on 09/19/2024 at 12:25
== END ==
PROVIDERS: PCP Internal Medicine; Referring Provider Physician Assistant; Visit Provider Physician Assistant
DX: M47.26 Other spondylosis with radiculopathy, lumbar region (principal); M47.27 Other spondylosis with radiculopathy, lumbosacral region; M51.16 Intervertebral disc disorders with radiculopathy, lumbar region
CPT/HCPCS: 72100; 72114